=== PATIENT | male | born 1970 | race Caucasian/White ===

== ENCOUNTER 2018-09-01 12:37 | Emergency (ER) | payer OTHER, SELFPAY ==
[2018-09-01 13:00] VITALS: BP 135/89; PULSE 79; RESP 20; TEMP 36.8; O2SAT 97
--- NOTE | 2018-09-01 14:01 | ED_ITS ---
HPI - Skin/Abscess/Foreign Bdy <MARGA Le - Last Filed: 09/01/18 22:15> General Chief complaint: Skin/Abscess/Foreign Body Stated complaint: STATES CYST ON HIS BUTTOCKS Time Seen by Provider: 09/01/18 13:18 Source: patient Mode of arrival: ambulatory Limitations: no limitations History of Present Illness HPI narrative: 48-year-old healthy male this everyday smoker here for complaint of having a abscess to his right lower buttocks. He states that he has some swelling into his right lower buttocks for the past 3 weeks. He denies any drainage from the area. No trauma to the area. He states that he feels like it has gotten larger over the past several days. He denies any fevers or chills. Pain and swelling is limited to that area. No other concerns or complaints. He denies any prior history of having abscesses or MRSA. MD complaint: abscess/boil Related Data Previous Rx's Medication Instructions Recorded clindamycin HCl 300 mg PO QID #28 cap 09/01/18 Allergies Allergy/AdvReac Type Severity Reaction Status Date / Time codeine Allergy Verified 09/01/18 13:14 Review of Systems <MARGA Le - Last Filed: 09/01/18 22:15> Constitutional Denies chills, Denies fever(s), Denies lethargy and Denies weakness Eyes Denies change in vision, Denies eye discharge, Denies irritation and Denies loss of vision ENT Ears, Nose, Mouth, and Throat: Denies change in voice, Denies neck pain and Denies sore throat Cardiovascular Denies chest pain, Denies irregular heart rhythm, Denies lightheadedness, Denies palpitations, Denies dyspnea, Denies dyspnea on exertion and Denies orthopnea Respiratory Denies cough, Denies dyspnea, Denies dyspnea on exertion and Denies wheezing Gastrointestinal Gastrointestinal: Denies abdominal pain, Denies change in bowel habits, Denies diarrhea, Denies nausea and Denies vomiting Genitourinary Denies hematuria, Denies flank pain, Denies urinary incontinence and Denies urinary urgency Musculoskeletal Denies neck pain Integumentary/Breasts Comments: Abscess right lower buttock Neurologic Denies confusion, Denies loss of vision and Denies weakness Psychiatric Denies anxiety, Denies confusion, Denies depression, Denies homicidal ideation and Denies suicidal ideation Endocrine Denies palpitations Allergic/Immunologic Denies wheezing PFSH <MARGA Le - Last Filed: 09/01/18 22:15> Social History Smoking Status: Current every day smoker Social History Smoking Status: Current every day smoker Exam <MARGA Le - Last Filed: 09/01/18 22:15> Initial Vital Signs Initial Vital Signs: Vital Signs Temperature 98.2 F 09/01/18 13:00 Pulse Rate 79 09/01/18 13:00 Respiratory Rate 20 09/01/18 13:00 Blood Pressure 135/89 09/01/18 13:00 Pulse Oximetry 97 09/01/18 13:00 Const General: cooperative and well developed Nutritional Appearance: well nourished Orientation: alert, awake, oriented x3 and not confused HENMT Mouth: oral mucosae normal and moist mucous membranes Eyes Conjunctivae: conjunctivae normal Sclera: sclerae normal Pupils: PERRL EOM: EOM intact bilaterally Resp Effort & Inspection: normal respiratory effort, able to speak in complete sentences, no respiratory distress and no use of accessory muscles Auscultation: clear to auscultation bilaterally, no rales, no rhonchi and no wheezes Cardio Rate: regular rate Rhythm: regular rhythm Heart Sounds: no click, no gallops, no murmurs and no rubs Skin Other: 4 cm by 3 cm area of erythema and swelling with fluctuance and induration to medial inferior right buttocks Neuro General: alert, oriented x3, gait normal and no focal motor deficits Speech: speech normal <Denise Che DO - Last Filed: 09/02/18 07:51> Initial Vital Signs Initial Vital Signs: Vital Signs Temperature 98.2 F 09/01/18 13:00 Pulse Rate 79 09/01/18 13:00 Respiratory Rate 20 09/01/18 13:00 Blood Pressure 135/89 09/01/18 13:00 Pulse Oximetry 97 09/01/18 13:00 Procedures <MARGA Le - Last Filed: 09/01/18 22:15> Abscess I/D Site: other (Buttocks) Side (if applicable): right Local Anesthetic: lidocaine 1% Amount of anesthesia used (mL): 2 Technique: incised with #11 blade and other (Moderate amount of purulence/sanguinous drainage) Irrigation: Yes Packing used?: none Complications: pain Course <MARGA Le - Last Filed: 09/01/18 22:15> Orders Ordered: ED Orders 09/01/18 14:00 Wound Culture and Gram Stain Stat Vital Signs - 8 hr 09/01/18 14:33 Pulse Rate 88 Respiratory Rate 18 Blood Pressure 122/85 Pulse Oximetry 97 <Denise Che DO - Last Filed: 09/02/18 07:51> Orders Ordered: ED Orders 09/01/18 14:00 Wound Culture and Gram Stain Stat Vital Signs - 8 hr 09/01/18 14:33 Pulse Rate 88 Respiratory Rate 18 Blood Pressure 122/85 Pulse Oximetry 97 MDM - Skin/Abscess/Foreign Bdy <MARGA Le - Last Filed: 09/01/18 22:15> MDM Narrative Medical decision making narrative: Abscess to right lower buttocks was incised and drained. Patient tolerated well. No complications. Wound culture is obtained and is pending. He is placed on clindamycin. [id number] ibuprofen as needed for any discomfort. Follow up with primary care provider for re-evaluation. For any worsening symptoms return to the emergency room. Discharge Plan Departure Patient Disposition: Home Clinical Impression: Abscess of skin or subcutaneous tissue Qualifiers: Site of cutaneous abscess: buttock Qualified Code(s): L02.31 - Cutaneous abscess of buttock Discharge Date/Time: 09/01/18 14:31 Interventions: ED Discharge Assessment Last Done: 09/01/18 14:33 Instructions: DI for Skin Abscess Activity Restrictions/Additional Instructions: Abscess to the right buttocks was incised and drained today. You are placed on a antibiotic ,use as directed. Follow up with primary care provider in the next several days for re-evaluation. Use [id number] ibuprofen as needed for any discomfort. For any worsening symptoms return to the emergency room. Prescriptions: New clindamycin HCl 300 mg capsule 300 mg PO QID Qty: 28 RF: 0 Referrals: [facility] [Provider Group] Stand Alone Forms: Work Release Note <Denise Che DO - Last Filed: 09/02/18 07:51> Cosign ED Attending Cosignature Attestation: I was immediately available in the department for consultation. Documentation has been reviewed. I agree with assessment and plan.
[2018-09-01 14:33] VITALS: BP 122/85; PULSE 88; RESP 18; O2SAT 97
== END 2018-09-01 14:31 | disposition home or self-care (01) ==
PROVIDERS: Emergency Provider Nurse Practitioner Family
DX: L02.31 Cutaneous abscess of buttock (principal)
CPT/HCPCS: 10060; 87070; 87077; 87147; 87186; 87205; 99282; 99292

== ENCOUNTER → 2020-12-18 12:06 | Outpatient (CLI) | payer OTHER, SELFPAY ==
--- NOTE | 2020-12-18 12:07 | DI.US.S_ITS ---
PROCEDURE: US SOFT TISSUE HEAD AND NECK INDICATIONS: ENLARGED LYMPH NODES TECHNIQUE: Real-time scanning was performed of the neck region of interest, with image documentation. COMPARISON: None. FINDINGS: Scattered lymph nodes are noted within the neck. Measured lymph nodes are less than 1 cm in short axis. Most appear to retain a fatty hilum. However, a fatty hilum is not identified in several of the subcentimeter lymph nodes. IMPRESSION: 1. No enlarged lymph nodes based on short axis measurements. . 2. The majority appear to retain fatty hilum. Several lymph nodes demonstrate poor visualization of a fatty hilum. While this could be secondary to technique/reactive nature, interval follow-up is recommended, as loss of fatty hilum can also be seen with more aggressive etiologies. Dictated by: Olga Song M.D. on 12/18/2020 at 16:13 Approved by: Olga Song M.D. on 12/18/2020 at 16:15
== END ==
PROVIDERS: PCP Physician Assistant; Referring Provider Physician Assistant; Visit Provider Physician Assistant
DX: R07.0 Pain in throat (principal); R59.1 Generalized enlarged lymph nodes; R13.19 Other dysphagia
CPT/HCPCS: 76536

== ENCOUNTER 2022-06-28 11:27 | Emergency (ER) | payer OTHER, MEDICAID, SELFPAY ==
[2022-06-28 11:41] VITALS: BP 169/77; PULSE 115; RESP 16; TEMP 36.7; O2SAT 99; BMI 29.2
--- NOTE | 2022-06-28 11:53 | ED_ITS ---
HPI - Skin/Abscess/Foreign Bdy General Chief complaint: Skin/Abscess/Foreign Body Stated complaint: Spider bite 1 mo ago, spots on arm Time Seen by Provider: 06/28/22 11:44 Source: patient Mode of arrival: Family Vehicle Limitations: no limitations History of Present Illness HPI narrative: 51-year-old male smoker presents with small spots on his arm that are painless and otherwise asymptomatic, there is no pruritus. About 1 month ago he had been seen at an outside facility for evaluation of a spider bite. He states that he had been in his home playing video games when he looked down in his right lateral leg and saw a spider and attempted to brush it away, soon thereafter he felt a burning, tingling sensation in his leg and subsequent development of some hemorrhagic blisters. He presented 1st by EMS and then was redirected to the emergency department and had been treated with doxycycline for possible infectious etiology. He has been followed closely by his primary care provider and in the aftermath has developed a painless reticular rash in the region of this bite. It has been slowly improving. He is absent of any systemic complaints such as dizziness, weakness or lightheadedness. He is had no fever chills. He denies chest pain, shortness of breath nor nausea, vomiting or diarrhea. He has no abdominal pain or urinary complaints such as dysuria, frequency or urgency. He denies the use of any topicals. He denies the use of any heat pads. He started noticing these very small, almost imperceptible spots on his arm and given the big picture he is concerned and wants to be checked out Related Data Previous Rx's Medication Instructions Recorded clindamycin HCl 300 mg capsule 300 mg PO QID #28 caps 09/01/18 prednisone 10 mg tablet See Rx Instructions .Route 06/28/22 .COMPLEX #30 tabs Allergies Allergy/AdvReac Type Severity Reaction Status Date / Time codeine Allergy Verified 09/01/18 13:14 Review of Systems Review of Systems Narrative: GENERAL: See HPI HEENT: Denies sinus pain, ear pain, sore throat, difficulty swallowing, dizziness. RESPIRATORY: Denies dyspnea, cough, wheezing, hemoptysis, sputum. CARDIOVASCULAR: Denies chest pain, palpitations, orthopnea, edema, GASTROINTESTINAL: Denies nausea, vomiting, abdominal pain, diarrhea, constipation, melena. : Denies dysuria, frequency, incontinence, hematuria, urinary retention. MUSCULOSKELETAL: denies weakness, joint pain, or bony pain SKIN: See HPI NEUROLOGIC: Denies weakness, headache, numbness, change in speech, confusion, seizures, incoordination. PSYCHIATRIC: No concerning psychosocial issues. 12 point review of systems is negative except for those stated above Patient History Social History Smoking Status: Current every day smoker Smoking Status: Current every day smoker tobacco type: cigarettes alcohol intake frequency: 3 or more drinks per day Alcohol type: beer Substance Use Type: marijuana Exam Narrative Exam Narrative: GENERAL: [51] year old patient appears stated age. Well-developed patient, in mild distress. Anxious HEAD: Atraumatic. Normocephalic. EYES: Pupils equal round and reactive. Extraocular motions intact. No scleral icterus. No injection or drainage. ENT: Nose without bleeding, purulent drainage. Throat without erythema, tonsillar hypertrophy or exudate. Airway patent. NECK: Trachea midline. Non tender CARDIOVASCULAR: Regular rate and rhythm without murmurs, gallops, or rubs. RESPIRATORY: Decreased breath sounds bilaterally with a slightly prolonged expiratory phase, no wheezes, rales or rhonchi GASTROINTESTINAL: Abdomen soft, non-tender, nondistended. EXTREMITIES: No edema or joint tenderness. BACK: Nontender without deformity or crepitance. No flank tenderness. NEURO: AOx3. SKIN: Right lateral lower extremity with a painless reticular type rash, this is nonpalpable and not obviously blanchable. There is no sloughing of the skin, bulla, blisters, tenderness, drainage or breaks in the skin. My long few small, almost imperceptible ?spots? on right upper extremity, no pain, erythema Initial Vital Signs Initial Vital Signs: Vital Signs Temperature 98.1 F 06/28/22 11:41 Pulse Rate 115 H 06/28/22 11:41 Respiratory Rate 16 06/28/22 11:41 Blood Pressure 169/77 H 06/28/22 11:41 Pulse Oximetry 99 06/28/22 11:41 Oxygen Delivery Method 06/28/22 11:41 Course Vital Signs Vital signs: Vital Signs - 8 hr 06/28/22 11:41 Temperature 98.1 F Pulse Rate 115 H Respiratory Rate 16 Blood Pressure 169/77 H Pulse Oximetry 99 Oxygen Delivery Method Room Air MDM - Skin/Abscess/Foreign Bdy Lab Data Result diagrams: 06/28/22 12:42 06/28/22 12:42 Labs: Lab Results 06/28/22 06/28/22 Range/Units 12:42 12:42 WBC 11.1 H (4.5-11.0) X10^3/uL RBC 4.81 (4.5-5.9) X10^6/uL Hgb 16.0 (13.5-17.5) g/dL Hct 45.3 (41-53) % MCV 94.2 (80-100) fL MCH 33.3 (26-34) PG MCHC 35.3 (30-36) % RDW 13.5 (11.6-14.8) % Plt Count 250 (150-400) X10^3/uL Neut % (Auto) 71.9 (50-75) % Lymph % (Auto) 14.3 L (25-40) % Park % (Auto) 9.4 (3-14) % Eos % (Auto) 3.3 (2-4) % Baso % (Auto) 1.1 (0-2) % Neut # (Auto) 8000 H (4186-1249) /uL Lymph # (Auto) 1600 (2068-3417) /uL Park # (Auto) 1000 H (0-900) /uL Eos # (Auto) 400 (0-450) /uL Baso # (Auto) 100 (0-100) /uL ESR 7 (0-15) MM/HR Sodium 136 L (137-145) mmol/L Potassium 4.2 (3.4-5.1) mmol/L Chloride 101 (98-107) mmol/L Carbon Dioxide 23 (22-32) mmol/L BUN 4 L (9-20) mg/dL Creatinine 0.65 L (0.66-1.25) mg/dL Estimated GFR > 60 (>60) mL/min BUN/Creatinine Ratio 6.2 (6-22) Glucose 104 H (70-100) mg/dL Calcium 9.2 (8.4-10.2) mg/dL C-Reactive Protein < 0.5 (<1.0) mg/dL MDM Narrative Medical decision making narrative: 51-year-old male smoker with very small, almost imperceptible skin lesions on right upper extremity as well as reported significant improvement and healing of reticular type rash on right lower leg in the aftermath of a spider bite and treatment with doxycycline Multiple etiologies for patient's symptoms considered including, but not limited to: [Drug reaction, allergic reaction, localize vasculitis,vs. erythema ab igne vs. other] Prior Charts reviewed: Would be emergency department chart obtained and reviewed by myself, also a 2nd ED visit from our department a few years Labs reviewed and interpreted by myself: Very minimal elevation in white blood cells, no significant left shift. Electrolytes unremarkable, inflammatory markers within normal limits Patient new complaints on upper extremity are unremarkable. He is a reassuring history and physical exam. He is absence of any systemic complaints. The reticular rash on his right lower extremity is reported to be significantly improved, this is verified by evaluating pictures on patient's phone. Exact etiology of that particular rash is unclear, drug reaction, erythema my ab igne, localized vasculitis all considered. Findings and discharge diagnosis discussed with patient/family followed by verbalization of understanding Return precautions discussed with patient/family whom verbalize understanding of diagnosis and plan Discharge Plan Departure Patient Disposition: Home Clinical Impression: Skin lesion Instructions: DI for Rash Activity Restrictions/Additional Instructions: *You have been diagnosed with [ non-specific rash, possible drug reaction or local vasculitis] *What to do: *Please continue to take your regular medications as directed. [ x] New medication prescriptions sent to your pharmacy: [ [facility]] [ ] New medication written as a paper prescription [ ] No new medications given *Please follow up with your primary care provider in 2-3 days, call for an appointment. Let them know you were seen in the Emergency Department and that we ask that you be seen in follow up. We will electronically transmit a record of today's note if your PCP is in our system *If you do not have a primary care provider please contact the [facility] Resource line at [phone]. They will ask some questions about your medical history and help get you set up with a doctor in the community. *Return to Emergency Department if you should have any new, worsening or concerning symptoms, such as [fever greater than 101 F, shaking chills, worsening pain, persistent vomiting or other bothersome symptoms] Prescriptions: New prednisone 10 mg tablet See Rx Instructions .ROUTE .COMPLEX Qty: 30 0RF Rx Instructions: Day 1,2,3: 40mg PO Daily Day 4,5,6: 30mg PO Daily Day 7,8,9: 20mg PO Daily Day 10,11,12: 10mg PO Daily #30 No Action clindamycin HCl 300 mg capsule 300 mg PO QID Qty: 28 0RF Referrals: Kurtis Perea PA-C [Primary Care Provider] - Stand Alone Forms: Patient Portal/API
[2022-06-28 13:00] LABS: Add Manual Diff / Slide Review NO; Basophils Absolute Auto 100 /uL (0-100); Basophils Percent Auto 1.1 % (0-2); Eosinophils Absolute Auto 400 /uL (0-450); Eosinophils Percent Auto 3.3 % (2-4); Hematocrit 45.3 % (41-53); Lymphocytes Absolute Auto 1600 /uL (1100-4500); Lymphocytes Percent Auto 14.3 % (25-40); Mean Corpuscular HGB Conc 35.3 % (30-36); Mean Corpuscular Hemoglobin 33.3 PG (26-34); Mean Corpuscular Volume 94.2 fL (80-100); Monocytes Absolute Auto 1000 /uL (0-900); Monocytes Percent Auto 9.4 % (3-14); Neutrophils Absolute Auto 8000 /uL (1500-7000); Neutrophils Percent Auto 71.9 % (50-75); Platelet Count 250 X10^3/uL (150-400); Red Blood Cell Count 4.81 X10^6/uL (4.5-5.9); Red Cell Distribution Width 13.5 % (11.6-14.8); White Blood Cell Count 11.1 X10^3/uL (4.5-11.0)
[2022-06-28 13:10] LABS: BUN Creatinine Ratio 6.2 (6-22); Blood Urea Nitrogen 4 mg/dL (9-20); C-Reactive Protein Quant < 0.5 mg/dL (<1.0); Calcium 9.2 mg/dL (8.4-10.2); Carbon Dioxide 23 mmol/L (22-32); Chloride 101 mmol/L (98-107); Estimated Glomerular Filt Rate > 60 mL/min (>60); Glucose 104 mg/dL (70-100); HEMOLYSIS 24 (0-50); Potassium 4.2 mmol/L (3.4-5.1); Sodium 136 mmol/L (137-145)
[2022-06-28 13:41] VITALS: BP 142/79; PULSE 90; O2SAT 97
[2022-06-28 13:43] LABS: Erythrocyte Sedimentation Rate 7 MM/HR (0-15)
== END 2022-06-28 13:44 | disposition home or self-care (01) ==
PROVIDERS: Emergency Provider Emergency Medicine; PCP Student in an Organized Health Care Education/Training Program
DX: R21 Rash and other nonspecific skin eruption (principal); L98.9 Disorder of the skin and subcutaneous tissue, unspecified
CPT/HCPCS: 36415; 80048; 85025; 85651; 86140; 99283

== ENCOUNTER 2023-02-14 14:46 | Emergency (ER) | payer OTHER, MEDICAID, SELFPAY ==
[2023-02-14 14:48] VITALS: BP 142/78; PULSE 94; RESP 16; TEMP 37.1; O2SAT 99; BMI 27.7
--- NOTE | 2023-02-14 15:18 | ED.RECABL ---
HPI - Recheck/Abnormal Lab/Rx General Chief Complaint: Recheck/Abnormal Lab/Rx Stated Complaint: R/ hand stitches still bleeding from T-2 Time Seen by Provider: 02/14/23 14:55 Source: patient Mode of arrival: Ambulatory History of Present Illness HPI narrative: Patient presents for wound check. Received stitches at the base of his R thumb at [facility] less than 24 hours ago. Patient states when he took the bandage off after playing X box today and there was blood. His friend told him that he should go immediately to the emergency department to have his wound checked. Related Data Previous Rx's Medication Instructions Recorded clindamycin HCl 300 mg capsule 300 mg PO QID #28 caps 09/01/18 prednisone 10 mg tablet See Rx Instructions .Route 06/28/22 .COMPLEX #30 tabs Allergies Allergy/AdvReac Type Severity Reaction Status Date / Time codeine Allergy Verified 09/01/18 13:14 Review of Systems Review of Systems Narrative: CONSTITUTIONAL- Denies: fever, chills, fatigue HEENT- Denies: sore throat, nosebleed, vision changes RESPIRATORY- Denies: shortness of breath, cough, wheezing CARDIAC- Denies: chest pain, edema, orthopnea GI- Denies: abdominal pain, nausea, vomiting, constipation, diarrhea - Denies: frequency, dysuria, hematuria, flank pain MSK- Denies: extremity pain, extremity swelling, joint pain, joint swelling SKIN-reports: Laceration, repaired Denies: rash, itching, burn, swelling NEUROLOGICAL- Denies: headache, numbness, weakness, dizziness PSYCHIATRIC- Denies: anxiety, depression, suicidal ideation, homicidal ideation Patient History Social History Smoking Status: Current every day smoker Smoking Status: Current every day smoker tobacco type: cigarettes alcohol intake frequency: 3 or more drinks per day Alcohol type: beer Substance Use Type: marijuana Exam Initial Vital Signs Initial Vital Signs: Vital Signs Temperature 98.7 F 02/14/23 14:48 Pulse Rate 94 H 02/14/23 14:48 Respiratory Rate 16 02/14/23 14:48 Blood Pressure 142/78 H 02/14/23 14:48 Pulse Oximetry 99 02/14/23 14:48 Oxygen Delivery Method Room Air 09/03/23 14:48 Const: Well-nourished, Well-developed, appears stated age Eyes: PERRL, EOMI, conjunctiva normal ENT: Atraumatic, dentition normal, mucous membranes moist Cardiac: regular rate, regular rhythm RESP: unlabored, clear bilaterally, no wheezing GI: Atraumatic, soft, nontender, nondistended, no rebound, no guarding MSK: Atraumatic, full range of motion, pulses equal Skin: Warm, Dry, sutures at base of right thumb clean, dry, intact, no active bleeding, no excessive warmth or erythema Neuro: AO x3, CN II-XII grossly intact, moves all extremities Psych: affect normal, mood normal, not suicidal, not homicidal Course Course Course Narrative: Wound check, appears to be healing well. Patient likely agitated sutures after playing crealyticsox. Wound cleaned, bacitracin applied, wound care instructions discussed at bedside. Orders Ordered: Discontinued Medications Bacitracin (Bacitracin Oint 0.9 Gm Pckt) 1 applic TOP NOW ONE Stop: 02/14/23 15:18 Last Admin: 02/14/23 15:23 Dose: 1 applic Vital Signs Vital signs: Vital Signs - 8 hr 02/14/23 14:48 Temperature 98.7 F Pulse Rate 94 H Respiratory Rate 16 Blood Pressure 142/78 H Pulse Oximetry 99 Oxygen Delivery Method Room Air Discharge Plan Departure Patient Disposition: Home Clinical Impression: Encounter for wound re-check Instructions: Laceration Repair Prescriptions: No Action clindamycin HCl 300 mg capsule 300 mg PO QID Qty: 28 0RF prednisone 10 mg tablet See Rx Instructions .ROUTE .COMPLEX Qty: 30 0RF Rx Instructions: Day 1,2,3: 40mg PO Daily Day 4,5,6: 30mg PO Daily Day 7,8,9: 20mg PO Daily Day 10,11,12: 10mg PO Daily #30 Referrals: Kurtis Perea PA-C [Primary Care Provider] - Stand Alone Forms: Patient Portal/API
[2023-02-14] MEDS: BACITRACIN OINT 0.9 GM PCKT 1 APPLIC TOP (15:23)
== END 2023-02-14 15:27 | disposition home or self-care (01) ==
PROVIDERS: Emergency Provider Emergency Medicine; PCP Student in an Organized Health Care Education/Training Program
DX: Z48.00 Encounter for change or removal of nonsurgical wound dressing (principal)
CPT/HCPCS: 99282

== ENCOUNTER 2024-08-28 10:49 | Inpatient (IN) | payer OTHER, SELFPAY ==
[2024-08-28 11:08] VITALS: BP 124/71; PULSE 112; RESP 14; TEMP 36.2; O2SAT 100; BMI 21.5
--- NOTE | 2024-08-28 11:33 | ED_ITS ---
HPI - Psych General Chief Complaint: Psychiatric Symptoms Stated Complaint: depression Time Seen by Provider: 08/28/24 11:24 Source: patient and family Mode of arrival: Ambulatory History of Present Illness HPI Narrative: 54-year-old male with ongoing alcohol use, last drink yesterday, no shakiness, no seizure activity, decreased eating, family concern for possible depression, no known suicidal ideation, no known homicidal ideation, here per request of family members for further evaluation. Related Data Previous Rx's Medication Instructions Recorded clindamycin HCl 300 mg capsule 300 mg PO QID #28 caps 09/01/18 prednisone 10 mg tablet See Rx Instructions .Route 06/28/22 .COMPLEX #30 tabs Allergies Allergy/AdvReac Type Severity Reaction Status Date / Time codeine Allergy Verified 09/01/18 13:14 Patient History Social History household members: family Smoking Status: Current every day smoker Smoking Status: Current every day smoker tobacco type: cigarettes alcohol intake frequency: 3 or more drinks per day Alcohol type: beer and hard liquor Exam Narrative Exam Narrative: GENERAL: Well-developed patient, in mild distress. HEAD: Atraumatic. Normocephalic. EYES: Pupils equal round and reactive. Extraocular motions intact. No scleral icterus. No injection or drainage. ENT: Nose without bleeding, purulent drainage. Throat without erythema, tonsillar hypertrophy or exudate. Airway patent. NECK: Trachea midline. Non tender CARDIOVASCULAR: Regular rate and rhythm without murmurs, gallops, or rubs. RESPIRATORY: Clear to auscultation. Breath sounds equal bilaterally. No wheezes, rales, or rhonchi. GASTROINTESTINAL: Abdomen soft, non-tender, nondistended. EXTREMITIES: No edema or joint tenderness. BACK: Nontender without deformity or crepitance. No flank tenderness. NEURO: AOx3. Motor functions grossly nonfocal SKIN: No rash or erythema of visible areas Initial Vital Signs Initial Vital Signs: Vital Signs Temperature 97.2 F L 08/28/24 11:08 Pulse Rate 112 H 08/28/24 11:08 Respiratory Rate 14 08/28/24 11:08 Blood Pressure 124/71 08/28/24 11:08 Pulse Oximetry 100 08/28/24 11:08 Oxygen Delivery Method Room Air 08/28/24 11:08 Course Orders Ordered: ED Orders 08/28/24 13:00 Acetaminophen Stat Complete Blood Count AUTO DIFF Stat Comprehensive Metabolic Panel Stat Ethanol (ETOH) Stat Salicylate Stat TSH w/ Reflex to FT4 Stat 08/28/24 14:51 CT abdomen pelvis wo con Stat 08/28/24 16:57 BMP [Basic Metabolic Panel] Stat 08/28/24 17:10 Ictotest Urine Stat Urinalysis and Microscopic Stat Urine Drug Screen, Rapid Stat Al Hydrox/Mg Hydrox/Simethicone (Mag Hydrox/Alum/Simeth 30 Ml Udc) 30 ml PO Q6HR PRN PRN Reason: Dyspepsia Sodium Chloride (Normal Saline 0.9%) 1,000 mls @ 150 mls/hr IV CONT BEVRELY Last Admin: 08/28/24 18:03 Dose: 150 mls/hr Documented By: MICHAEL Naloxone HCl (Naloxone 0.4 Mg/Ml Vial) 0.2 mg IV Q2MIN PRN PRN Reason: Opiate Reversal Ondansetron HCl (Ondansetron 4 Mg/2 Ml Inj) 4 mg IV Q8HR PRN PRN Reason: Nausea And Vomiting Discontinued Medications Sodium Chloride (Normal Saline 0.9%) 1,000 mls @ 1,000 mls/hr IV BOLUS ONE Stop: 08/28/24 15:50 Last Infusion: 08/28/24 16:05 Dose: Infused Documented By: Admin: 08/28/24 15:00 Dose: 1,000 mls/hr Documented By: TRINI Lactated Ringer's (Lactated Ringers) 1,000 mls @ 500 mls/hr IV BOLUS ONE Stop: 08/28/24 17:04 Last Admin: 08/28/24 19:37 Dose: Not Given Documented By: TRINI Vital Signs Vital signs: Vital Signs - 8 hr 08/28/24 17:36 Temperature 97.7 F Pulse Rate 74 Respiratory Rate 15 Blood Pressure 138/96 H Pulse Oximetry 100 Oxygen Delivery Method Room Air MDM - Psych Lab Data Attestation: I reviewed the patient's lab results. Lab results narrative: White blood cell count 9100, hemoglobin 15.3, platelets 323,000. Sodium 136, potassium 4.4, serum CO2 19, serum chloride 104. BUN 75 with creatinine 2.58. GFR 29 noted to be low. Glucose 118. Total bilirubin 1.4, AST slight abnormality, AST and alkaline phosphatase studies normal. Alcohol level negative, acetaminophen level negative, salicylate level negative. Repeat BNP shows mild improvement renal function, BUN 72 with creatinine 2.3 only. 08/28/24 13:00 08/28/24 16:57 Labs: Lab Results 08/28/24 08/28/24 08/28/24 Range/Units 13:00 16:57 17:10 WBC 9.1 (4.5-11.0) X10^3/uL RBC 4.69 (4.5-5.9) X10^6/uL Hgb 15.3 (13.5-17.5) g/dL Hct 43.5 (41-53) % MCV 92.7 (80-100) fL MCH 32.6 (26-34) PG MCHC 35.1 (30-36) % RDW 14.5 (11.6-14.8) % Plt Count 323 (150-400) X10^3/uL Neut % (Auto) Not Reportable Lymph % (Auto) Not Reportable [place] % (Auto) Not Reportable Eos % (Auto) Not Reportable Baso % (Auto) Not Reportable Lymph # (Auto) Not Reportable [place] # (Auto) Not Reportable Baso # (Auto) Not Reportable Total Counted 100 Seg Neutrophils % 77.0 H (38-70) % Lymphocytes % (Manual) 17.0 L (25-45) % Monocytes % (Manual) 5.0 (2-11) % Basophils % (Manual) 1.0 (0-1) % Neutrophils # (Manual) 7007 H (1765-6318) /uL RBC Morphology Normal morphology Sodium 136 L 137 (137-145) mmol/L Potassium 4.4 4.1 (3.4-5.1) mmol/L Chloride 104 107 (98-107) mmol/L Carbon Dioxide 19 L 17 L (22-32) mmol/L BUN 75 H 72 H (9-20) mg/dL Creatinine 2.58 H 2.30 H (0.66-1.25) mg/dL Estimated GFR 29 L 33 L (>60) mL/min BUN/Creatinine Ratio 29.1 H 31.3 H (6-22) Glucose 118 H 110 H (70-100) mg/dL Calcium 9.8 8.9 (8.4-10.2) mg/dL Total Bilirubin 1.4 H (0.2-1.3) mg/dL AST 59 (17-59) IU/L ALT 82 H (<50) IU/L Alkaline Phosphatase 72 (38-126) U/L Total Protein 7.9 (6.3-8.2) g/dL Albumin 4.5 (3.5-5.0) g/dL Globulin 3.4 (1.7-4.1) g/dL Albumin/Globulin Ratio 1.3 (1.0-2.8) TSH 4.67 (0.47-4.68) uIU/mL Urine Color N Urine Appearance Clear Urine pH 5.5 (4.5-8.0) Ur Specific [place] 1.025 (1.000-1.035) Urine Protein Negative (Negative) Urine Glucose (UA) Negative (Negative) g/dL Urine Ketones Trace H (NEGATIVE) Urine Occult Blood Negative (Negative) Urine Nitrate Negative (Negative) Urine Bilirubin 1+ H (NEGATIVE) Ur Bilirubin Confirm Negative (Negative) Urine Urobilinogen 0.2 (0.2) E.U./dL Ur Leukocyte Esterase Negative (NEGATIVE) Urine RBC None seen (0-5/HPF) Urine WBC 0-1/hpf (0-5/HPF) Ur Squamous Epith Cells 0-1 /hpf (0-5/HPF) Ur Transition Epith Cell 1-5/hpf (0-5/HPF) Ur Renal Epithelial Cell 1-5/hpf H (0-1/HPF) Amorphous Sediment 1+ Urine Bacteria None seen (None) Hyaline Casts 5-10/lpf (None) Ur Culture Indicated? Cult not indicated Vol Urine Centrifuged 10ml (spun) Salicylates < 1.0 (<20) mg/dL U Opiates 300ng/mL cut Negative (Negative) Ur Oxycodone Screen Negative (Negative) Urine Methadone Screen Negative (Negative) Acetaminophen < 10 (10-30) ug/mL Ur Barbiturates Screen Negative (Negative) U Tricyclic Antidepress Negative (Negative) Ur Phencyclidine Scrn Negative (Negative) Ur Amphetamines Screen Negative (Negative) U Methamphetamines Scrn Negative (Negative) Ur MDMA Scrn (Ecstasy) Negative (Negative) U Benzodiazepines Scrn Negative (Negative) Urine Cocaine Screen Negative (Negative) U Marijuana (THC) Screen Negative (Negative) Urine Specific [place] (Normal) Ethyl Alcohol < 10 ( - 10) mg/dL Ur Creatinine (Normal) 08/28/24 Range/Units 17:10 WBC (4.5-11.0) X10^3/uL RBC (4.5-5.9) X10^6/uL Hgb (13.5-17.5) g/dL Hct (41-53) % MCV (80-100) fL MCH (26-34) PG MCHC (30-36) % RDW (11.6-14.8) % Plt Count (150-400) X10^3/uL Neut % (Auto) Lymph % (Auto) [place] % (Auto) Eos % (Auto) Baso % (Auto) Lymph # (Auto) [place] # (Auto) Baso # (Auto) Total Counted Seg Neutrophils % (38-70) % Lymphocytes % (Manual) (25-45) % Monocytes % (Manual) (2-11) % Basophils % (Manual) (0-1) % Neutrophils # (Manual) (7620-5980) /uL RBC Morphology Sodium (137-145) mmol/L Potassium (3.4-5.1) mmol/L Chloride (98-107) mmol/L Carbon Dioxide (22-32) mmol/L BUN (9-20) mg/dL Creatinine (0.66-1.25) mg/dL Estimated GFR (>60) mL/min BUN/Creatinine Ratio (6-22) Glucose (70-100) mg/dL Calcium (8.4-10.2) mg/dL Total Bilirubin (0.2-1.3) mg/dL AST (17-59) IU/L ALT (<50) IU/L Alkaline Phosphatase (38-126) U/L Total Protein (6.3-8.2) g/dL Albumin (3.5-5.0) g/dL Globulin (1.7-4.1) g/dL Albumin/Globulin Ratio (1.0-2.8) TSH (0.47-4.68) uIU/mL Urine Color Urine Appearance Urine pH Normal (4.5-8.0) Ur Specific [place] (1.000-1.035) Urine Protein (Negative) Urine Glucose (UA) (Negative) g/dL Urine Ketones (NEGATIVE) Urine Occult Blood (Negative) Urine Nitrate (Negative) Urine Bilirubin (NEGATIVE) Ur Bilirubin Confirm (Negative) Urine Urobilinogen (0.2) E.U./dL Ur Leukocyte Esterase (NEGATIVE) Urine RBC (0-5/HPF) Urine WBC (0-5/HPF) Ur Squamous Epith Cells (0-5/HPF) Ur Transition Epith Cell (0-5/HPF) Ur Renal Epithelial Cell (0-1/HPF) Amorphous Sediment Urine Bacteria (None) Hyaline Casts (None) Ur Culture Indicated? Vol Urine Centrifuged Salicylates (<20) mg/dL U Opiates 300ng/mL cut (Negative) Ur Oxycodone Screen (Negative) Urine Methadone Screen (Negative) Acetaminophen (10-30) ug/mL Ur Barbiturates Screen (Negative) U Tricyclic Antidepress (Negative) Ur Phencyclidine Scrn (Negative) Ur Amphetamines Screen (Negative) U Methamphetamines Scrn (Negative) Ur MDMA Scrn (Ecstasy) (Negative) U Benzodiazepines Scrn (Negative) Urine Cocaine Screen (Negative) U Marijuana (THC) Screen (Negative) Urine Specific [place] Normal (Normal) Ethyl Alcohol ( - 10) mg/dL Ur Creatinine Normal (Normal) Imaging Data CT abdomen and pelvis noncontrast: Radiologist's Impression: [place] [address] CT Scan Report Signed Patient: Chance Gill MR#: [id number] : 1970 Acct:[id number] Age/Sex: 54 / M Date of Service: 08/28/24 Loc: ED Accession Number: [id number] Procedure: CT abdomen pelvis wo con Ordering Provider: Reilly English MD PROCEDURE: CT ABDOMEN PELVIS WO CON INDICATIONS: PERRY, eval for causes TECHNIQUE: Axial sections were acquired from the lung bases to the pubic symphysis. Coronal and sagittal reformats were performed. For radiation dose reduction, the following was used: automated exposure control, adjustment of mA and/or kV according to patient size. COMPARISON: None. FINDINGS: Image quality: Diagnostic. Lower Chest: Marked coronary calcifications for age. URINARY: Right Kidney: No stones or hydronephrosis. Right Ureter: No hydroureter. Left Kidney: No stones or hydronephrosis. Left Ureter: No hydroureter. Bladder: Normal wall thickness. No stones. ABDOMEN: Liver: No contour-deforming solid mass. Gallbladder: Absent. Biliary ducts: No biliary dilation. Pancreas: No ductal dilation. Spleen: Size is within normal limits. Adrenal Glands: No adrenal nodules. Stomach and Bowel: Normal colonic caliber, without significant wall thickening. Normal appendix. Colonic diverticulosis without evidence of diverticulitis. Peritoneum: No abnormal intraperitoneal fluid. No free air. Ventral Wall: No hernia. Abdominal Nodes: No enlarged retroperitoneal or mesenteric lymph nodes. Vessels: Aorta and inferior vena cava are normal in size. PELVIS: Pelvic Organs: Unremarkable. Pelvic Nodes: Unremarkable. Miscellaneous: No inguinal hernias are seen. Bones: Unremarkable. IMPRESSION: No obstructing stones or hydronephrosis. Normal appendix. Colonic diverticulosis without evidence of diverticulitis. Marked coronary artery calcifications for age. Correlate with risk factors and advise counseling. Dictated by: Ravi Moore M.D. on 08/28/2024 at 15:15 Approved by: Ravi Moore M.D. on 08/28/2024 at 15:18 ECG Data Attestation: I personally reviewed and interpreted this ECG as follows: Interpretation: Normal sinus rhythm with rate of a 78, no obvious ST segment elevation or depression changes. UT 152, QRS 90, QTC 469. MDM Narrative Medical decision making narrative: 54-year-old male admits to alcohol use, decreased oral intake, suspected depression, no current SI/HI, reluctantly here with family for evaluation for suspected major depression. Screening labs sent. GFR 29 poor, this apparently is unbeknownst to the patient. IV fluid bolus. We will recheck BUN and creatinine. CT abdomen and pelvis noncontrast study ordered. CT abdomen and pelvis noncontrast, no obstructive process, no acute your renal or ureteral or bladder process. No acute process. See radiology report. IV fluids to be given, repeat BUN creatinine after fluid bolus. Repeat BNP shows mild improvement BUN creatinine, continue IV fluids. Consider admission. Patient agreeable. We will contact hospitalist. Case discussed with hospitalist Dr. Crenshaw who accepts patient for admission to observation. Discharge Plan Departure Patient Disposition: Admitted as Observation Clinical Impression: Acute kidney injury, Depression, Dehydration Admit Date/Time: 08/28/24 18:34 Admit Provider: Liang Winston
--- NOTE | 2024-08-28 12:15 | EKG_ITS ---
[address] [address] [address] [address] Test Date: 2024-08-28 Pat Name: Chance Gill Department: Room: Gender: Male Residential Program Manager: NORIS : 1970 Requested By: Order Number: [id number] Reading MD: Bora Holden MD Measurements Intervals [place] Rate: 78 P: 53 [place]: 152 QRS: 74 QRSD: 90 T: 73 QT: 412 QTc: 469 Interpretive Statements Normal sinus rhythm Electronically Signed On 08-29-2024 6:46:33 PDT by Bora Holden MD
[2024-08-28 13:14] LABS: Hematocrit 43.5 % (41-53); Hemoglobin 15.3 g/dL (13.5-17.5); Mean Corpuscular HGB Conc 35.1 % (30-36); Mean Corpuscular Hemoglobin 32.6 PG (26-34); Mean Corpuscular Volume 92.7 fL (80-100); Platelet Count 323 X10^3/uL (150-400); Red Blood Cell Count 4.69 X10^6/uL (4.5-5.9); Red Cell Distribution Width 14.5 % (11.6-14.8); White Blood Cell Count 9.1 X10^3/uL (4.5-11.0)
[2024-08-28 13:17] LABS: Add Manual Diff / Slide Review YES
[2024-08-28 13:22] LABS: Acetaminophen < 10 ug/mL (10-30); Alanine Aminotransferase 82 IU/L (<50); Albumin 4.5 g/dL (3.5-5.0); Albumin Globulin Ratio 1.3 (1.0-2.8); Alkaline Phosphatase 72 U/L (38-126); Aspartate Aminotransferase 59 IU/L (17-59); BUN Creatinine Ratio 29.1 (6-22); Bilirubin Total 1.4 mg/dL (0.2-1.3); Blood Urea Nitrogen 75 mg/dL (9-20); Calcium 9.8 mg/dL (8.4-10.2); Carbon Dioxide 19 mmol/L (22-32); Chloride 104 mmol/L (98-107); Estimated Glomerular Filt Rate 29 mL/min (>60); Ethanol (ETOH) < 10 mg/dL; Globulin 3.4 g/dL (1.7-4.1); Glucose 118 mg/dL (70-100); HEMOLYSIS < 15 (0-50); Potassium 4.4 mmol/L (3.4-5.1); Salicylate < 1.0 mg/dL (<20); Sodium 136 mmol/L (137-145); Total Protein 7.9 g/dL (6.3-8.2)
[2024-08-28 13:26] LABS: Neutrophils Absolute Manual 7007 /uL (3000-5900); Total Cells Counted 100
[2024-08-28 13:27] LABS: RBC Morphology Normal Morphology
[2024-08-28 13:52] LABS: TSH w/ Reflex to FT4 4.67 uIU/mL (0.47-4.68)
--- NOTE | 2024-08-28 14:51 | DI.CT.S_ITS ---
PROCEDURE: CT ABDOMEN PELVIS WO CON INDICATIONS: PERRY, eval for causes TECHNIQUE: Axial sections were acquired from the lung bases to the pubic symphysis. Coronal and sagittal reformats were performed. For radiation dose reduction, the following was used: automated exposure control, adjustment of mA and/or kV according to patient size. COMPARISON: None. FINDINGS: Image quality: Diagnostic. Lower Chest: Marked coronary calcifications for age. URINARY: Right Kidney: No stones or hydronephrosis. Right Ureter: No hydroureter. Left Kidney: No stones or hydronephrosis. Left Ureter: No hydroureter. Bladder: Normal wall thickness. No stones. ABDOMEN: Liver: No contour-deforming solid mass. Gallbladder: Absent. Biliary ducts: No biliary dilation. Pancreas: No ductal dilation. Spleen: Size is within normal limits. Adrenal Glands: No adrenal nodules. Stomach and Bowel: Normal colonic caliber, without significant wall thickening. Normal appendix. Colonic diverticulosis without evidence of diverticulitis. Peritoneum: No abnormal intraperitoneal fluid. No free air. Ventral Wall: No hernia. Abdominal Nodes: No enlarged retroperitoneal or mesenteric lymph nodes. Vessels: Aorta and inferior vena cava are normal in size. PELVIS: Pelvic Organs: Unremarkable. Pelvic Nodes: Unremarkable. Miscellaneous: No inguinal hernias are seen. Bones: Unremarkable. IMPRESSION: No obstructing stones or hydronephrosis. Normal appendix. Colonic diverticulosis without evidence of diverticulitis. Marked coronary artery calcifications for age. Correlate with risk factors and advise counseling. Dictated by: Ravi Moore M.D. on 08/28/2024 at 15:15 Approved by: Ravi Moore M.D. on 08/28/2024 at 15:18
[2024-08-28] MEDS: SODIUM CHLORIDE 0.9% 1,000 ML 1000 ML IV (15:00)
[2024-08-28 17:17] LABS: BUN Creatinine Ratio 31.3 (6-22); Blood Urea Nitrogen 72 mg/dL (9-20); Calcium 8.9 mg/dL (8.4-10.2); Carbon Dioxide 17 mmol/L (22-32); Chloride 107 mmol/L (98-107); Estimated Glomerular Filt Rate 33 mL/min (>60); Glucose 110 mg/dL (70-100); HEMOLYSIS < 15 (0-50); Potassium 4.1 mmol/L (3.4-5.1); Sodium 137 mmol/L (137-145)
[2024-08-28 17:34] LABS: Appearance Urine UA CLEAR; Bilirubin Urine UA 1+ (NEGATIVE); Glucose Urine UA NEGATIVE (Negative); Ketones Urine UA TRACE (NEGATIVE); Leukocyte Esterase Urine UA NEGATIVE (NEGATIVE); Nitrite Urine UA NEGATIVE (Negative); Occult Blood Urine UA NEGATIVE (Negative); Protein Urine UA NEGATIVE (Negative); Specific Gravity Urine UA 1.025 (1.000-1.035); Urobilinogen Urine UA 0.2 E.U./dL (0.2); pH Urine UA 5.5 (4.5-8.0)
[2024-08-28 17:36] VITALS: BP 138/96; PULSE 74; RESP 15; TEMP 36.5; O2SAT 100
[2024-08-28 17:43] LABS: Bacteria Urine None Seen; Color Urine UA N; Ictotest Urine Negative (Negative); RBC Urine None Seen (0-5/HPF); Urine Volume 10mL (spun); WBC Urine 0-1/HPF (0-5/HPF)
[2024-08-28 17:44] LABS: Amorphous Sediment Urine 1+; Culture Indicated Urine Cult Not Indicated; Hyaline Casts Urine 5-10/LPF; Renal Epithelial Cells Urine 1-5/HPF (0-1/HPF); Squamous Epithelial Cell Urine 0-1 /HPF (0-5/HPF); Transitional Epi Cells Urine 1-5/HPF (0-5/HPF)
[2024-08-28 17:45] LABS: UR Morphine/Opiate cutoff 300 Negative (Negative); Ur Creatinine Normal (Normal); Ur Specific Gravity Normal (Normal); Urine Amphetamines Negative (Negative); Urine Barbiturates Negative (Negative); Urine Benzodiazepines Negative (Negative); Urine Cocaine Negative (Negative); Urine MDMA Negative (Negative); Urine Methadone Negative (Negative); Urine Methamphetamines Negative (Negative); Urine Oxycodone Negative (Negative); Urine Phencyclidine Negative (Negative); Urine Tetrahydrocannabinol Negative (Negative); Urine Tricyclic Antidepressant Negative (Negative); Urine pH Normal (Normal)
[2024-08-28] MEDS: SODIUM CHLORIDE 0.9% 1,000 ML 150 ML IV (18:03)
[2024-08-28 18:57] VITALS: BMI 21.5
--- NOTE | 2024-08-28 19:08 | CM.DANOTE ---
Addendum entered by UTE Sanchez 08/28/24 19:16: ED PUTTY AND PATCH WORKER Addendum: ED PUTTY AND PATCH WORKER deployed PHQ-9 and CARIE-7. Patient scored 14 (PHQ-9) and 9 (CARIE-7), indicating moderately severe depression and moderate anxiety, respectively. PHQ-9 and CARIE-7 placed in pt chart. GM Moses Original Note: DCP Assessment Note: Pt is a 54yo male, resident of [place], is admitted for PERRY and depression. Pt lives in a house with his father. Pt's Primary Care Provider is Dr. Kurtis Perea ([facility]) and insurance is [employer]. Reviewed chart and discussed with multidisciplinary team pt's medical status and initial discharge needs. DCP met w/patient at bedside; introduced self and role. Patient was found in bed, alert and oriented, cooperative with assessment. Pt presents with a flat affect, Pt confirmed living situation and good support in friends. Pt expressed preference in whatever helps me in the long run and states he is open to co-occurring treatment. 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 PUTTY AND PATCH WORKER presented contact information for [facility] in [place], pt stated interest in the program if recommended when medically cleared. Plan: Anticipating medical clearance until referral to inpatient co-occurring treatment vs. outpatient MH/ABBY treatment in [place]. Pt drove his POV to ED. CM team will follow closely for coordination of discharge plans. GM Moses Discharge Planning/Care Management CM Discharge Assessment Start: 08/28/24 19:05 Freq: Status: Active Protocol: Document 08/28/24 19:05 MW (Rec: 08/28/24 19:07 MW Desktop) Discharge Planning Assessment Assigned B[employer] Worker UTE Miller DPOA/Assigned Designee Name Murali Awad Advance Directives? No History Provided By Patient,Friend,Medical Record Has Patient been admitted in last 30 No days? Prior Living Arrangements House Comment [place] Household Members family Comment Lives with father Type of transporation used prior to Drives own vehicle admit Independent with ADL's Yes Is patient alert and oriented? Yes Caregiver for Another No Patient/Family Preference Drug/Alcohol Rehab Comment Co-Occurring Rehab vs. Outpatient ABBY/MH treatment Barriers to Discharge No Discharge Plan Drug Rehabilitation Transportation Arrangement Pt drive POV to and plans to drive home if able. Referrals Initiated None needed If patient plan is home with home health No : Has signed face to face form been completed? Review Status In Process Please Provide Date Initial DC 08/28/24 Assessment Was Performed Next Review Type Continued Stay Review
--- NOTE | 2024-08-28 19:20 | P.HP_ITS ---
History of Present Illness History of Present Illness Date Patient Seen: 08/28/24 Chief complaint: depression Narrative: From the ED admission: 54-year-old male with ongoing alcohol use, last drink yesterday, no shakiness, no seizure activity, decreased eating, family concern for possible depression, no known suicidal ideation, no known homicidal ideation, here per request of family members for further evaluation. 54 y/o alcoholic brought by family with above concerns. On admission he doesn't act depressed by rather disoriented, almost demented. Unable to answer a single question but without active hallucinations or any other sign of withdrawal. [facility] Social History household members: family Smoking Status: Current every day smoker alcohol intake: current Meds Home Medications and Allergies Home Medications Medication Instructions Recorded Confirmed Type bupropion HCl 150 mg tablet,12 hr 150 mg PO QAM 08/28/24 08/28/24 History sustained-release Allergies Allergy/AdvReac Type Severity Reaction Status Date / Time codeine Allergy Verified 09/01/18 13:14 Review of Systems Review of Systems Narrative: Unobtainable, disoriented Exam Vital Signs (past 8 hours): - 08/28/24 17:36 Temperature 97.7 F Pulse Rate 74 Respiratory Rate 15 Blood Pressure 138/96 H Pulse Oximetry 100 Oxygen Delivery Method Room Air Oxygen Delivery Method Room Air Narrative Exam Narrative: General - in no distress, not diaphoretic CVS - not tachycardic RS - not tachypneic GI - w/o ascites Skin - not jaundiced Neuro - not tremulous, w/o focal weakness Psych - disoriented x 3, not agitated Objective Imaging CT scan - abdomen: Radiologist's impression: Marked coronary artery calcifications for age. Labs 08/29/24 05:30 08/28/24 16:57 Labs: Laboratory Results - last 24 hr 08/28/24 08/28/24 08/28/24 13:00 16:57 17:10 WBC 9.1 RBC 4.69 Hgb 15.3 Hct 43.5 MCV 92.7 MCH 32.6 MCHC 35.1 RDW 14.5 Plt Count 323 Neut % (Auto) Not Reportable Lymph % (Auto) Not Reportable [place] % (Auto) Not Reportable Eos % (Auto) Not Reportable Baso % (Auto) Not Reportable Lymph # (Auto) Not Reportable [place] # (Auto) Not Reportable Baso # (Auto) Not Reportable Total Counted 100 Seg Neutrophils % 77.0 H Lymphocytes % (Manual) 17.0 L Monocytes % (Manual) 5.0 Basophils % (Manual) 1.0 Neutrophils # (Manual) 7007 H RBC Morphology Normal morphology Sodium 136 L 137 Potassium 4.4 4.1 Chloride 104 107 Carbon Dioxide 19 L 17 L BUN 75 H 72 H Creatinine 2.58 H 2.30 H Estimated GFR 29 L 33 L BUN/Creatinine Ratio 29.1 H 31.3 H Glucose 118 H 110 H Calcium 9.8 8.9 Total Bilirubin 1.4 H AST 59 ALT 82 H Alkaline Phosphatase 72 Total Protein 7.9 Albumin 4.5 Globulin 3.4 Albumin/Globulin Ratio 1.3 TSH 4.67 Urine Color N Urine Appearance Clear Urine pH 5.5 Ur Specific [place] 1.025 Urine Protein Negative Urine Glucose (UA) Negative Urine Ketones Trace H Urine Occult Blood Negative Urine Nitrate Negative Urine Bilirubin 1+ H Ur Bilirubin Confirm Negative Urine Urobilinogen 0.2 Ur Leukocyte Esterase Negative Urine RBC None seen Urine WBC 0-1/hpf Ur Squamous Epith Cells 0-1 /hpf Ur Transition Epith Cell 1-5/hpf Ur Renal Epithelial Cell 1-5/hpf H Amorphous Sediment 1+ Urine Bacteria None seen Hyaline Casts 5-10/lpf Ur Culture Indicated? Cult not indicated Vol Urine Centrifuged 10ml (spun) Salicylates < 1.0 U Opiates 300ng/mL cut Negative Ur Oxycodone Screen Negative Urine Methadone Screen Negative Acetaminophen < 10 Ur Barbiturates Screen Negative U Tricyclic Antidepress Negative Ur Phencyclidine Scrn Negative Ur Amphetamines Screen Negative U Methamphetamines Scrn Negative Ur MDMA Scrn (Ecstasy) Negative U Benzodiazepines Scrn Negative Urine Cocaine Screen Negative U Marijuana (THC) Screen Negative Urine Specific [place] Ethyl Alcohol < 10 Ur Creatinine 08/28/24 17:10 WBC RBC Hgb Hct MCV MCH MCHC RDW Plt Count Neut % (Auto) Lymph % (Auto) [place] % (Auto) Eos % (Auto) Baso % (Auto) Lymph # (Auto) [place] # (Auto) Baso # (Auto) Total Counted Seg Neutrophils % Lymphocytes % (Manual) Monocytes % (Manual) Basophils % (Manual) Neutrophils # (Manual) RBC Morphology Sodium Potassium Chloride Carbon Dioxide BUN Creatinine Estimated GFR BUN/Creatinine Ratio Glucose Calcium Total Bilirubin AST ALT Alkaline Phosphatase Total Protein Albumin Globulin Albumin/Globulin Ratio TSH Urine Color Urine Appearance Urine pH Normal Ur Specific [place] Urine Protein Urine Glucose (UA) Urine Ketones Urine Occult Blood Urine Nitrate Urine Bilirubin Ur Bilirubin Confirm Urine Urobilinogen Ur Leukocyte Esterase Urine RBC Urine WBC Ur Squamous Epith Cells Ur Transition Epith Cell Ur Renal Epithelial Cell Amorphous Sediment Urine Bacteria Hyaline Casts Ur Culture Indicated? Vol Urine Centrifuged Salicylates U Opiates 300ng/mL cut Ur Oxycodone Screen Urine Methadone Screen Acetaminophen Ur Barbiturates Screen U Tricyclic Antidepress Ur Phencyclidine Scrn Ur Amphetamines Screen U Methamphetamines Scrn Ur MDMA Scrn (Ecstasy) U Benzodiazepines Scrn Urine Cocaine Screen U Marijuana (THC) Screen Urine Specific [place] Normal Ethyl Alcohol Ur Creatinine Normal Assessment & Plan Assessment and plan (1) Alcoholism: Status: Acute (2) Depression: Status: Acute (3) Acute kidney injury: Status: Acute Assessment & Plan narrative: Alcoholism / Depression - last drink 2 days ago - w/o signs of withdrawal - continue Wellbutrin - IV thiamine for possible alcohol-induced psychosis - psychiatric referral / [facility] referral PERRY - IVFs - BMP pending Smoker - nicotine patch DVT prophylaxis - SCDs Time-Based Coding :: [TOTAL MINUTES] spent with patient and on the chart (including review of chart, obtaining history, exam, reviewing outside data, placing orders, documenting exam and treatment plan, and counseling patient) on [DATE].
[2024-08-28 19:58] VITALS: BP 147/67; PULSE 74; RESP 16; TEMP 36.6; O2SAT 98
[2024-08-28 20:57] VITALS: BP 119/82; PULSE 75; RESP 20; TEMP 36.7; O2SAT 100
[2024-08-28] MEDS: NICOTINE 21 MG PATCH TOP (22:29)
[2024-08-29] MEDS: SODIUM CHLORIDE 0.9% 1,000 ML 150 ML IV ×3 (00:39→23:40)
--- NOTE | 2024-08-29 02:49 | PC.NURSE ---
~ 2100: Assumed care of patient from ED, pt self transferred from [facility] to bed. NS @ 150mL/hr infusing. VSWNL. Pt A&Ox2-3, flat affect, but mostly cooperative. Declined to take off shoes or clothing for full skin check; see EMR. CIWA 0. Unreliable narrator, gives differing answers (answers re: amount of smoking per day ranged from half a pack, a whole pack, a pack and a half, and more than a pack), got confused/forgetful while applying nicotine patch despite discussing a few minutes earlier, doesn't know exactly how he got to [facility] (pt arrived via his POV). Educated pt accordion tuner light and calling before getting up to restroom, however pt declines or forgets to do so. Bed alarm on. Pt denies chest pain, cough, N/V, headache, or any other pain. Pt resting comfortably, call light within reach, plan of care continues.
[2024-08-29 05:43] VITALS: BP 131/83; PULSE 56; RESP 18; TEMP 36.7; O2SAT 100
[2024-08-29 06:10] LABS: Add Manual Diff / Slide Review NO; Basophils Absolute Auto 100 /uL (0-100); Basophils Percent Auto 1.6 % (0-2); Eosinophils Absolute Auto 0 /uL (0-450); Eosinophils Percent Auto 0.2 % (2-4); Hematocrit 38.1 % (41-53); Hemoglobin 13.1 g/dL (13.5-17.5); Lymphocytes Absolute Auto 1400 /uL (1100-4500); Lymphocytes Percent Auto 18.1 % (25-40); Mean Corpuscular HGB Conc 34.5 % (30-36); Mean Corpuscular Hemoglobin 32.5 PG (26-34); Mean Corpuscular Volume 94.1 fL (80-100); Monocytes Absolute Auto 900 /uL (0-900); Neutrophils Absolute Auto 5200 /uL (1500-7000); Neutrophils Percent Auto 68.1 % (50-75); Platelet Count 257 X10^3/uL (150-400); Red Blood Cell Count 4.04 X10^6/uL (4.5-5.9); Red Cell Distribution Width 14.7 % (11.6-14.8); White Blood Cell Count 7.6 X10^3/uL (4.5-11.0)
[2024-08-29 06:22] LABS: Alanine Aminotransferase 63 IU/L (<50); Albumin 3.4 g/dL (3.5-5.0); Albumin Globulin Ratio 1.3 (1.0-2.8); Alkaline Phosphatase 55 U/L (38-126); Aspartate Aminotransferase 43 IU/L (17-59); BUN Creatinine Ratio 35.5 (6-22); Bilirubin Total 1.3 mg/dL (0.2-1.3); Blood Urea Nitrogen 65 mg/dL (9-20); Calcium 8.7 mg/dL (8.4-10.2); Carbon Dioxide 20 mmol/L (22-32); Chloride 112 mmol/L (98-107); Estimated Glomerular Filt Rate 44 mL/min (>60); Globulin 2.7 g/dL (1.7-4.1); Glucose 105 mg/dL (70-100); HEMOLYSIS < 15 (0-50); Magnesium 2.5 mg/dL (1.6-2.3); Potassium 4.1 mmol/L (3.4-5.1); Sodium 140 mmol/L (137-145); Total Protein 6.1 g/dL (6.3-8.2)
[2024-08-29 08:00] VITALS: BP 131/92; PULSE 66; RESP 16; TEMP 36.4; O2SAT 100
[2024-08-29] MEDS: NICOTINE 21 MG PATCH TOP (09:08)
[2024-08-29] MEDS: THIAMINE 200 MG in SODIUM CHLORIDE 0.9% 100 ML 408 MG IV (09:44)
[2024-08-29] MEDS: PANTOPRAZOLE DR 20 MG TABLET PO (11:08)
--- NOTE | 2024-08-29 11:42 | DIET.CONS ---
Dietary Consultation Note Admission Date: 08/28/2024 18:34 Assessment: 54 y M admitted for PERRY, alcoholism. Dietitian screened for low MNA. Met with pt and family at bedside. Family reports normal diet is 1 meal per day, but in the past 6 months, has had decreased PO intakes (ex- instead of doing whole hamburger and fries meal, will only do the hamburger without the bun or will skip a day of eating and only eat small portion of 1 meal the next day). Drinks soda and beer. Family notes usual body weight of 190 lb 6 months ago. Nutrition focused physical exam showing: -Moderate muscle mass loss temporalis, deltoid -Moderate subcutaneous fat loss buccal and orbital fat pads Ht: 182.88 cm Wt: 72.121 kg BMI: 21.5 UBW: 86.36 kg in Feb 2024 (-16% weight loss within 6 months, severe) Last BM: 08/28/24 (08/28/24 18:57) MNA: 5 Rajesh Score: 20 Diet: 08/29/24 Breakfast General (Regular) Diet Diet Modifications: Safety Tray needed?: No Food Texture: Level 7 - Regular Liquid Consistency: Level 0 - Thin Nutrition Percent Meal Consumed 15 08/29/24 09:49 Labs: RBC 4.04 X10^6/uL (4.5-5.9) L 08/29/24 05:30 Hgb 13.1 g/dL (13.5-17.5) L 08/29/24 05:30 Hct 38.1 % (41-53) L 08/29/24 05:30 Creatinine 1.83 mg/dL (0.66-1.25) H 08/29/24 05:30 Nutrition Diagnosis: Severe acute Protein Calorie Malnutrition r/t inadequate protein and nutrient-dense intake with excessive EtOH intake as evidenced by 3 or more alcoholic drinks per day, 15% weight loss within 6 months (severe), <60% of estimated protein needs per day for 6 months per diet recall (severe), moderate muscle mass wasting (temples, deltoid) and moderate subcutaneous fat loss (buccal and orbital fat pads) Interventions: -ONS Enlive trial -Encouraged and discussed additional meal options/having breakfast before other drinks EER: 1800 kcals (25 kcals/kg per BMI) 70 g protein (1 g/kg per PCM w/ PERRY) Monitoring/Evaluations: PO intakes Electronically Signed by: Giovanna Haile 08/29/24 11:42 Clinical Dietitian [address] [address]
[2024-08-29 12:00] VITALS: BP 107/69; PULSE 71; RESP 16; TEMP 36.7; O2SAT 99
--- NOTE | 2024-08-29 13:46 | PC.NURSE ---
Patient is alert and oriented x3 but is forgetful. Up with sba to use the bathroom, he has ivf infusing at 150cc/hr and is getting thiamine iv. Patient has a hx of drinking several beers/drinks per day and smoking 1-2 packs a day. He has a nicotine patch on his r.upper arm and is tolerating this well. Was going to give his buproprion this morning but his girlfriend states that he was not acting right on the medication and that he just stopped taking it. Not sure if they are even understanding patients medical conditions and why he is here, hospitalist is in the room speaking with them both now.
--- NOTE | 2024-08-29 15:08 | P.PN_ITS ---
Subjective Subjective Interval history: Chief complaint: Confusion memory deficits severe malnutrition suspected Wernicke-Korsakoff syndrome and stage IV kidney disease as well as liver injury History of present illness: 54-year-old male who has had a number of traumatic life events over the past decade by report has been drinking alcohol only and not eating any food except occasionally over the past 4 months. In the last 3 weeks patient has had increasing memory deficits short-term was brought to the emergency department. On admission he doesn't act depressed by rather disoriented, almost demented. Unable to answer a single question but without active hallucinations or any other sign of withdrawal. Findings in the emergency department significant for BUN 75 creatinine of 2.6 total bilirubin 1.4 ALT of 82 Hospital course: 08/29: Overnight no significant symptoms although patient appears very impulsive and does have significant short-term memory deficits however patient has had no signs of tremor hyperactivity hallucinosis. Patient has very poor memory does not know the year or the president or the month does remember 0 objects in 3 minutes can spell and do arithmetic however Highly suggestive of the or achy Korsakoff syndrome long discussion and will start Seroquel for his severe anxiety and depression. He does not seem to have alcohol withdrawal Review of systems: No headache diplopia blurred vision No difficulty swallowing No chest pain palpitations No shortness of breath No nausea vomiting diarrhea No paresthesia paresis Physical exam: Patient has very avoidant and flat but irritated affect new line HEENT unremarkable new line heart rate rhythm regular no murmurs appreciated Lungs clear Abdomen nondistended Extremities no edema Patient is only oriented to place and person No asterixis Exam Vital Signs (past 8 hours): - 08/29/24 08:00 08/29/24 12:00 Temperature 97.6 F 98.1 F Pulse Rate 66 71 Respiratory Rate 16 16 Blood Pressure 131/92 H 107/69 Pulse Oximetry 100 99 Oxygen Delivery Method Room Air Oxygen Flow Rate 0 Objective Labs 08/29/24 05:30 08/29/24 05:30 Labs: Laboratory Results - last 24 hr 08/28/24 08/28/24 08/28/24 16:57 17:10 17:10 WBC RBC Hgb Hct MCV MCH MCHC RDW Plt Count Neut % (Auto) Lymph % (Auto) [place] % (Auto) Eos % (Auto) Baso % (Auto) Neut # (Auto) Lymph # (Auto) [place] # (Auto) Eos # (Auto) Baso # (Auto) Sodium 137 Potassium 4.1 Chloride 107 Carbon Dioxide 17 L BUN 72 H Creatinine 2.30 H Estimated GFR 33 L BUN/Creatinine Ratio 31.3 H Glucose 110 H Calcium 8.9 Magnesium Total Bilirubin AST ALT Alkaline Phosphatase Total Protein Albumin Globulin Albumin/Globulin Ratio Urine Color N Urine Appearance Clear Urine pH 5.5 Normal Ur Specific [place] 1.025 Urine Protein Negative Urine Glucose (UA) Negative Urine Ketones Trace H Urine Occult Blood Negative Urine Nitrate Negative Urine Bilirubin 1+ H Ur Bilirubin Confirm Negative Urine Urobilinogen 0.2 Ur Leukocyte Esterase Negative Urine RBC None seen Urine WBC 0-1/hpf Ur Squamous Epith Cells 0-1 /hpf Ur Transition Epith Cell 1-5/hpf Ur Renal Epithelial Cell 1-5/hpf H Amorphous Sediment 1+ Urine Bacteria None seen Hyaline Casts 5-10/lpf Ur Culture Indicated? Cult not indicated Vol Urine Centrifuged 10ml (spun) U Opiates 300ng/mL cut Negative Ur Oxycodone Screen Negative Urine Methadone Screen Negative Ur Barbiturates Screen Negative U Tricyclic Antidepress Negative Ur Phencyclidine Scrn Negative Ur Amphetamines Screen Negative U Methamphetamines Scrn Negative Ur MDMA Scrn (Ecstasy) Negative U Benzodiazepines Scrn Negative Urine Cocaine Screen Negative U Marijuana (THC) Screen Negative Urine Specific [place] Normal Ur Creatinine Normal 08/29/24 05:30 WBC 7.6 RBC 4.04 L Hgb 13.1 L Hct 38.1 L MCV 94.1 MCH 32.5 MCHC 34.5 RDW 14.7 Plt Count 257 Neut % (Auto) 68.1 Lymph % (Auto) 18.1 L [place] % (Auto) 12.0 Eos % (Auto) 0.2 L Baso % (Auto) 1.6 Neut # (Auto) 5200 Lymph # (Auto) 1400 [place] # (Auto) 900 Eos # (Auto) 0 Baso # (Auto) 100 Sodium 140 Potassium 4.1 Chloride 112 H Carbon Dioxide 20 L BUN 65 H Creatinine 1.83 H Estimated GFR 44 L BUN/Creatinine Ratio 35.5 H Glucose 105 H Calcium 8.7 Magnesium 2.5 H Total Bilirubin 1.3 AST 43 ALT 63 H Alkaline Phosphatase 55 Total Protein 6.1 L Albumin 3.4 L Globulin 2.7 Albumin/Globulin Ratio 1.3 Urine Color Urine Appearance Urine pH Ur Specific [place] Urine Protein Urine Glucose (UA) Urine Ketones Urine Occult Blood Urine Nitrate Urine Bilirubin Ur Bilirubin Confirm Urine Urobilinogen Ur Leukocyte Esterase Urine RBC Urine WBC Ur Squamous Epith Cells Ur Transition Epith Cell Ur Renal Epithelial Cell Amorphous Sediment Urine Bacteria Hyaline Casts Ur Culture Indicated? Vol Urine Centrifuged U Opiates 300ng/mL cut Ur Oxycodone Screen Urine Methadone Screen Ur Barbiturates Screen U Tricyclic Antidepress Ur Phencyclidine Scrn Ur Amphetamines Screen U Methamphetamines Scrn Ur MDMA Scrn (Ecstasy) U Benzodiazepines Scrn Urine Cocaine Screen U Marijuana (THC) Screen Urine Specific [place] Ur Creatinine PFSH Social History household members: family Smoking Status: Current every day smoker alcohol intake: current Assessment & Plan Assessment & Plan narrative: Wernicke-Korsakoff syndrome highly suspected agree with high-dose thiamine initiated by near east archeology professor and will escalate dose -Very poor immediate short-term and remote memory on mental status -continue IV thiamine but escalate dose for acute treatment Acute kidney injury on chronic kidney disease approaching stage IV -monitor BUN creatinine -consider referral to outpatient Nephrology Mood disturbance -start low-dose Seroquel 25 mg HS DVT prophylaxis mechanical only due to liver disease and risk of falling Full code Time-Based Coding :: 45 minutes spent with patient and on the chart (including review of chart, obtaining history, exam, reviewing outside data, placing orders, documenting exam and treatment plan, and counseling patient) on 08/29/2024. Quality VTE Deep Vein Thrombosis/Pulmonary Embolism Present on Admission: No
[2024-08-29 16:00] VITALS: BP 136/74; PULSE 82; RESP 16; TEMP 36.6; O2SAT 98
[2024-08-29] MEDS: THIAMINE 500 MG in SODIUM CHLORIDE 0.9% 100 ML 420 MG IV (19:34)
[2024-08-29 20:00] VITALS: BP 117/74; PULSE 71; RESP 18; TEMP 36.5; O2SAT 100
[2024-08-29] MEDS: QUETIAPINE 25 MG TABLET PO (20:56)
[2024-08-30] VITALS: BP 115/70; PULSE 59; RESP 18; TEMP 36.2; O2SAT 98
[2024-08-30 04:00] VITALS: BP 131/87; PULSE 66; RESP 18; TEMP 36.1; O2SAT 99
[2024-08-30] MEDS: SODIUM CHLORIDE 0.9% 1,000 ML 150 ML IV ×2 (06:51→13:13)
[2024-08-30 08:00] VITALS: BP 135/88; PULSE 51; RESP 15; TEMP 36.2; O2SAT 99
[2024-08-30 08:40] LABS: Alanine Aminotransferase 43 IU/L (<50); Albumin 2.6 g/dL (3.5-5.0); Albumin Globulin Ratio 1.1 (1.0-2.8); Alkaline Phosphatase 43 U/L (38-126); Aspartate Aminotransferase 34 IU/L (17-59); BUN Creatinine Ratio 28.8 (6-22); Bilirubin Total 1.1 mg/dL (0.2-1.3); Blood Urea Nitrogen 36 mg/dL (9-20); Carbon Dioxide 20 mmol/L (22-32); Chloride 117 mmol/L (98-107); Estimated Glomerular Filt Rate > 60 mL/min (>60); Globulin 2.4 g/dL (1.7-4.1); Glucose 95 mg/dL (70-100); HEMOLYSIS < 15 (0-50); Potassium 3.6 mmol/L (3.4-5.1); Sodium 140 mmol/L (137-145)
[2024-08-30] MEDS: THIAMINE 500 MG in SODIUM CHLORIDE 0.9% 100 ML 420 MG IV ×3 (09:25→20:39)
[2024-08-30] MEDS: NICOTINE 21 MG PATCH TOP (10:20)
[2024-08-30 12:00] VITALS: BP 127/80; PULSE 57; RESP 12; TEMP 36.3; O2SAT 100
--- NOTE | 2024-08-30 13:48 | CM.DPC ---
DCP Cont. Reviewed EMR and team rounds for status updates. Pt remains on IV librium, newly on Seroquel for agitation and behaviors. Likely will need another 2-days before being ready for d/c. Monitoring for final d/c needs and readiness for OP ABBY tx.
[2024-08-30 16:00] VITALS: BP 129/94; PULSE 99; RESP 15; TEMP 36.2; O2SAT 100
--- NOTE | 2024-08-30 18:34 | P.PN_ITS ---
Subjective Subjective Date Patient Seen: 08/30/24 Interval history: Chief complaint: Confusion memory deficits severe malnutrition suspected Wernicke-Korsakoff syndrome and stage IV kidney disease as well as liver injury History of present illness: 54-year-old male who has had a number of traumatic life events over the past decade by report has been drinking alcohol only and not eating any food except occasionally over the past 4 months. In the last 3 weeks patient has had increasing memory deficits short-term was brought to the emergency department. On admission he doesn't act depressed by rather disoriented, almost demented. Unable to answer a single question but without active hallucinations or any other sign of withdrawal. Findings in the emergency department significant for BUN 75 creatinine of 2.6 total bilirubin 1.4 ALT of 82 Hospital course: 08/29: Overnight no significant symptoms although patient appears very impulsive and does have significant short-term memory deficits however patient has had no signs of tremor hyperactivity hallucinosis. Patient has very poor memory does not know the year or the president or the month does remember 0 objects in 3 minutes can spell and do arithmetic however Highly suggestive of the or achy Korsakoff syndrome long discussion and will start Seroquel for his severe anxiety and depression. He does not seem to have alcohol withdrawal 08/30: Overnight patient appeared to have slept well is much more pleasant and in much better mood today much more interactive a bit better memory does now remember the president but does not know the year did not recognize me from yesterday however Review of systems: No headache diplopia blurred vision No difficulty swallowing No chest pain palpitations No shortness of breath No nausea vomiting diarrhea No paresthesia paresis Physical exam: Patient has very avoidant and flat but irritated affect new line HEENT unremarkable new line heart rate rhythm regular no murmurs appreciated Lungs clear Abdomen nondistended Extremities no edema Patient is only oriented to place and person No asterixis Exam Vital Signs (past 8 hours): - 08/30/24 12:00 08/30/24 16:00 Temperature 97.4 F L 97.2 F L Pulse Rate 57 L 99 H Respiratory Rate 12 15 Blood Pressure 127/80 129/94 H Pulse Oximetry 100 100 Oxygen Delivery Method Room Air Oxygen Flow Rate 0 Objective Labs 08/29/24 05:30 08/30/24 08:11 Labs: Laboratory Results - last 24 hr 08/30/24 08:11 Sodium 140 Potassium 3.6 Chloride 117 H Carbon Dioxide 20 L BUN 36 H Creatinine 1.25 Estimated GFR > 60 BUN/Creatinine Ratio 28.8 H Glucose 95 Calcium 8.0 L Total Bilirubin 1.1 AST 34 ALT 43 Alkaline Phosphatase 43 Total Protein 5.0 L Albumin 2.6 L Globulin 2.4 Albumin/Globulin Ratio 1.1 PFSH Social History household members: family Smoking Status: Current every day smoker alcohol intake: current Assessment & Plan Assessment & Plan narrative: Wernicke-Korsakoff syndrome highly suspected agree with high-dose thiamine initiated by funeral director's assistant and will escalate dose -Very poor immediate short-term and remote memory on mental status -continue IV thiamine but escalate dose for acute treatment Acute kidney injury on chronic kidney disease approaching stage IV -monitor BUN creatinine -consider referral to outpatient Nephrology Mood disturbance -start low-dose Seroquel 25 mg HS DVT prophylaxis mechanical only due to liver disease and risk of falling Full code Time-Based Coding :: 45 minutes spent with patient and on the chart (including review of chart, obtaining history, exam, reviewing outside data, placing orders, documenting exam and treatment plan, and counseling patient) Time-Based Coding :: [TOTAL MINUTES] spent with patient and on the chart (including review of chart, obtaining history, exam, reviewing outside data, placing orders, documenting exam and treatment plan, and counseling patient) on [DATE]. Quality VTE Deep Vein Thrombosis/Pulmonary Embolism Present on Admission: No
[2024-08-30] MEDS: QUETIAPINE 25 MG TABLET PO (20:37)
[2024-08-30 21:30] VITALS: BP 125/68; PULSE 82; RESP 18; TEMP 36.8; O2SAT 100
[2024-08-31 00:01] LABS: Folate 3.3 ng/mL (2.76-20.0)
[2024-08-31 00:08] VITALS: BP 125/68; PULSE 82
[2024-08-31] MEDS: cloNIDine 0.1 MG TABLET PO (00:08)
[2024-08-31 01:00] VITALS: BP 142/79; PULSE 67; RESP 18; TEMP 36.8; O2SAT 98
[2024-08-31 05:00] VITALS: BP 125/77; PULSE 63; RESP 18; TEMP 36.3; O2SAT 99
[2024-08-31] MEDS: THIAMINE 500 MG in SODIUM CHLORIDE 0.9% 100 ML 420 MG IV ×2 (09:55→14:42)
[2024-08-31] MEDS: FOLIC ACID 1 MG TABLET PO (09:55)
[2024-08-31] MEDS: NICOTINE 21 MG PATCH TOP (09:55)
[2024-08-31] MEDS: MULTIVITAMIN 1 TABLET 1 TAB PO (09:55)
[2024-08-31] MEDS: THIAMINE 100 MG TABLET PO (09:55)
[2024-08-31 13:00] VITALS: BP 140/83; PULSE 83; RESP 20; TEMP 36.2; O2SAT 100
--- NOTE | 2024-08-31 13:25 | PM.PN.1 ---
Subjective Subjective Date Patient Seen: 08/31/24 Time Patient Seen: 13:25 Interval history: Chief complaint: Confusion memory deficits severe malnutrition suspected Wernicke-Korsakoff syndrome and stage IV kidney disease as well as liver injury History of present illness: 54-year-old male who has had a number of traumatic life events over the past decade by report has been drinking alcohol only and not eating any food except occasionally over the past 4 months. In the last 3 weeks patient has had increasing memory deficits short-term was brought to the emergency department. On admission he doesn't act depressed by rather disoriented, almost demented. Unable to answer a single question but without active hallucinations or any other sign of withdrawal. Findings in the emergency department significant for BUN 75 creatinine of 2.6 total bilirubin 1.4 ALT of 82 Hospital course: 08/29: Overnight no significant symptoms although patient appears very impulsive and does have significant short-term memory deficits however patient has had no signs of tremor hyperactivity hallucinosis. Patient has very poor memory does not know the year or the president or the month does remember 0 objects in 3 minutes can spell and do arithmetic however Highly suggestive of the or achy Korsakoff syndrome long discussion and will start Seroquel for his severe anxiety and depression. He does not seem to have alcohol withdrawal 08/30: Overnight patient appeared to have slept well is much more pleasant and in much better mood today much more interactive a bit better memory does now remember the president but does not know the year did not recognize me from yesterday however 08/31: Patient confused not oriented to place or year does not remember me Review of systems: No headache diplopia blurred vision No difficulty swallowing No chest pain palpitations No shortness of breath No nausea vomiting diarrhea No paresthesia paresis Physical exam: Patient has very disoriented with very poor memory HEENT unremarkable heart rate rhythm regular no murmurs appreciated Lungs clear Abdomen nondistended Extremities no edema Patient is only oriented to place and person No asterixis Objective laboratory and studies at bottom of note: Assessment and plan: Wernicke-Korsakoff syndrome highly suspected agree with high-dose thiamine initiated by case assembler and will escalate dose -Very poor immediate short-term and remote memory on mental status -continue IV thiamine 500 q.8 hours Acute kidney injury on chronic kidney disease approaching stage IV -monitor BUN creatinine -consider referral to outpatient Nephrology Mood disturbance -start low-dose Seroquel 25 mg HS DVT prophylaxis mechanical only due to liver disease and risk of falling Full code Time-Based Coding :: 45 minutes spent with patient and on the chart (including review of chart, obtaining history, exam, reviewing outside data, placing orders, documenting exam and treatment plan, and counseling patient) Exam Vital Signs (past 8 hours): - 08/31/24 13:00 Pulse Rate 83 Respiratory Rate 20 Blood Pressure 140/83 Pulse Oximetry 100 Oxygen Flow Rate 0 Oxygen Delivery Method Room Air Oxygen Flow Rate 0 Objective Labs 08/29/24 05:30 08/30/24 08:11 Labs: Laboratory Results - last 24 hr 08/30/24 22:15 Folate 3.3 PFSH Social History household members: family Smoking Status: Current every day smoker alcohol intake: current Assessment & Plan Time-Based Coding :: [TOTAL MINUTES] spent with patient and on the chart (including review of chart, obtaining history, exam, reviewing outside data, placing orders, documenting exam and treatment plan, and counseling patient) on [DATE]. Quality VTE Deep Vein Thrombosis/Pulmonary Embolism Present on Admission: No
[2024-08-31 14:47] LABS: Alanine Aminotransferase 46 IU/L (<50); Albumin 2.9 g/dL (3.5-5.0); Albumin Globulin Ratio 1.2 (1.0-2.8); Alkaline Phosphatase 50 U/L (38-126); Aspartate Aminotransferase 37 IU/L (17-59); BUN Creatinine Ratio 15.7 (6-22); Bilirubin Total 0.9 mg/dL (0.2-1.3); Blood Urea Nitrogen 16 mg/dL (9-20); Calcium 8.2 mg/dL (8.4-10.2); Carbon Dioxide 23 mmol/L (22-32); Chloride 111 mmol/L (98-107); Estimated Glomerular Filt Rate > 60 mL/min (>60); Globulin 2.4 g/dL (1.7-4.1); Glucose 95 mg/dL (70-100); HEMOLYSIS < 15 (0-50); Potassium 3.5 mmol/L (3.4-5.1); Sodium 139 mmol/L (137-145); Total Protein 5.3 g/dL (6.3-8.2)
[2024-08-31] MEDS: POTASSIUM CHLORIDE 20 MEQ TAB 40 MEQ PO (16:09)
[2024-08-31 17:00] VITALS: BP 125/89; PULSE 80; RESP 16; TEMP 36.5; O2SAT 97
[2024-08-31] MEDS: ACETAMINOPHEN 325 MG TABLET 650 MG PO (18:35)
[2024-08-31 21:00] VITALS: BP 143/95; PULSE 70; RESP 18; TEMP 36.8; O2SAT 99
[2024-08-31] MEDS: QUETIAPINE 25 MG TABLET PO (21:13)
[2024-08-31] MEDS: MAG HYDROX/ALUM/SIMETH 30 ML UDC PO (21:16)
[2024-09-01 03:00] VITALS: BP 161/109; PULSE 77; RESP 18; TEMP 36.9; O2SAT 99
[2024-09-01] MEDS: MULTIVITAMIN 1 TABLET 1 TAB PO (09:23)
[2024-09-01] MEDS: FOLIC ACID 1 MG TABLET PO (09:23)
[2024-09-01] MEDS: NICOTINE 21 MG PATCH TOP (09:25)
--- NOTE | 2024-09-01 10:28 | DIET.PN1 ---
Dietary Progress Note Assessment: Dietitian f/u. Met with pt at bedside. Eating baked chips and drinking regular pepsi. Reports not eating breakfast before tray was taken away, when asked if he would like anything from the nutrition rooms, he was open to turkey sandwich. Provided half of turkey sandwich and informed RN. PO intakes improving - 75-100% recorded. DFM reviewed for meal composition. Did not want ONS. Encouraged PO intakes for recovery. Ht: 182.88 cm Wt: 72.121 kg BMI: 21.5 Last BM: 08/31/24 (08/31/24 10:07) MNA: 5 Rajesh Score: 20 Diet: 08/29/24 Breakfast General (Regular) Diet Diet Modifications: Safety Tray needed?: No Food Texture: Level 7 - Regular Liquid Consistency: Level 0 - Thin Nutrition Percent Meal Consumed 75% 08/31/24 18:00 Percent Meal Consumed 100% 08/31/24 10:07 Labs: RBC 4.04 X10^6/uL (4.5-5.9) L 08/29/24 05:30 Hgb 13.1 g/dL (13.5-17.5) L 08/29/24 05:30 Hct 38.1 % (41-53) L 08/29/24 05:30 Creatinine 1.02 mg/dL (0.66-1.25) 08/31/24 14:14 Electronically Signed by: Giovanna Haile 09/01/24 10:28 Clinical Dietitian [address] [id number]
[2024-09-01] MEDS: THIAMINE 200 MG in SODIUM CHLORIDE 0.9% 100 ML 408 MG IV (10:38)
[2024-09-01 11:00] VITALS: BP 144/80; PULSE 69; RESP 16; TEMP 36.6; O2SAT 94
[2024-09-01] MEDS: MAG HYDROX/ALUM/SIMETH 30 ML UDC PO (11:58)
[2024-09-01 16:00] VITALS: BP 142/77; PULSE 87; RESP 17; O2SAT 98
--- NOTE | 2024-09-01 17:08 | PC.NURSE ---
Pt A/O, Denies any discomfort CIwa @ this time = 0 SL left wrist intact/patent Call light w/in reach, pt calls appropriately for needs. Continue w/plan of care.
[2024-09-01 20:00] VITALS: BP 130/85; PULSE 83; RESP 20; TEMP 36.9; O2SAT 98
[2024-09-01] MEDS: QUETIAPINE 25 MG TABLET PO (21:15)
[2024-09-01] MEDS: ACETAMINOPHEN 325 MG TABLET 650 MG PO (21:17)
[2024-09-01 23:18] VITALS: BP 125/76; PULSE 83; RESP 18; TEMP 37; O2SAT 98
[2024-09-02 09:00] VITALS: BP 156/98; PULSE 71; RESP 16; TEMP 36.8; O2SAT 98
[2024-09-02] MEDS: MULTIVITAMIN 1 TABLET 1 TAB PO (09:20)
[2024-09-02] MEDS: THIAMINE 200 MG in SODIUM CHLORIDE 0.9% 100 ML 408 MG IV (09:20)
[2024-09-02] MEDS: FOLIC ACID 1 MG TABLET PO (09:20)
--- NOTE | 2024-09-02 10:54 | P.PN_ITS ---
Subjective Subjective Date Patient Seen: 09/02/24 Time Patient Seen: 09:10 Interval history: Chief complaint: Confusion memory deficits severe malnutrition suspected Wernicke-Korsakoff syndrome and stage IV kidney disease as well as liver injury History of present illness: 54-year-old male who has had a number of traumatic life events over the past decade by report has been drinking alcohol only and not eating any food except occasionally over the past 4 months. In the last 3 weeks patient has had increasing memory deficits short-term was brought to the emergency department. On admission he doesn't act depressed by rather disoriented, almost demented. Unable to answer a single question but without active hallucinations or any other sign of withdrawal. Findings in the emergency department significant for BUN 75 creatinine of 2.6 total bilirubin 1.4 ALT of 82 Hospital course: 08/29: Overnight no significant symptoms although patient appears very impulsive and does have significant short-term memory deficits however patient has had no signs of tremor hyperactivity hallucinosis. Patient has very poor memory does not know the year or the president or the month does remember 0 objects in 3 minutes can spell and do arithmetic however Highly suggestive of the or achy Korsakoff syndrome long discussion and will start Seroquel for his severe anxiety and depression. He does not seem to have alcohol withdrawal 08/30: Overnight patient appeared to have slept well is much more pleasant and in much better mood today much more interactive a bit better memory does now remember the president but does not know the year did not recognize me from yesterday however 08/31: Patient confused not oriented to place or year does not remember me 09/02: He states he feels better and does not appear confused, but states he is too weak to safely return home to live alone. Exam Vital Signs (past 8 hours): - 09/02/24 09:00 Temperature 98.3 F Pulse Rate 71 Respiratory Rate 16 Blood Pressure 156/98 H Pulse Oximetry 98 Oxygen Flow Rate 0 Oxygen Delivery Method Room Air Oxygen Flow Rate 0 Narrative Exam Narrative: Patient is oriented x 3 and calm HEENT unremarkable heart rate rhythm regular no murmurs appreciated Lungs clear Abdomen nondistended Extremities no edema No focal neurologic deficits, globally weak No asterixis Objective Labs 08/29/24 05:30 08/31/24 14:14 [facility] Social History household members: family Smoking Status: Current every day smoker alcohol intake: current Assessment & Plan Assessment & Plan narrative: Wernicke-Korsakoff syndrome highly suspected agree with high-dose thiamine initiated by gimp buttonhole machine operator and will escalate dose -much improved with IV thiamine -Very poor immediate short-term and remote memory on mental status -continue IV thiamine 500 q.8 hours, switch to oral at discharge Acute kidney injury without chronic kidney disease -normalized without renal dysfunction Mood disturbance -appears stable -stop low-dose Seroquel 25 mg HS and monitor Weakness -consult PT to assess at this point DVT prophylaxis mechanical only due to liver disease and risk of falling Full code Quality VTE Deep Vein Thrombosis/Pulmonary Embolism Present on Admission: No [facility]ated [employer] Document charge(s): No Charge Codes Subsequent inpatient/observation care: 17050
[2024-09-02 13:00] VITALS: RESP 18
--- NOTE | 2024-09-02 16:04 | CM.DPC ---
DCP COnt: Per MD, pt likely could d/c today but still receiving IV meds and pt states he does not feel stable for d/c yet today. MD requested SW meet bedside with pt and his primary contact/support friend Ketty Bermeo to discuss d/c options for ABBY tx and SW met with MD and pt and friend. MD explained pt's current cognitive impairment makes it difficult for pt to provide accurate historical information and pt confirms that Elvie is his primary support and he states he trusts her with any decisions. Pt confirms he lives with his dad who is disabled from the after being enlisted for 20 years but cognitively intact and just needs some assist with chores and groceries. Pt forgetful and reminded of plan of discharge from the hospital tomorrow. Discussed option of Inpt ABBY tx and discussed plan for Elvie to continue staying and pt's home with his dad to help with the dogs and groceries for pt's Dad. Provided list of Inpt ABBY tx facilities as well as outpt ABBY options and planned for the best success for home plan as Elvie already has pt's wallet and keys and no access to beer/alcohol. Pt willing to discuss further with Elvie as unclear if best option is Inpt tx vs intensive outpt. Elvie concerned about pt's cognition and ability to make decisions himself. SW inquired about POA and pt open to reviewing POA pwk and brochure and states he would choose Elvie as 1)POA and his dad as 2)POA. Provided POA pwk and explained that currently no legal ability to make pt go to treatment and remain established and pt would need to be voluntary but strongly encouraged completing POA pwk as pt's cognition might continue being impaired and get worse, especially if alcohol is continued to be consumed. Both pt and Elvie acknowledge understanding and pt currently agreeable to completing POA pwk. Plan: Elvie plans to be bedside in the AM around 1000 to have further discussion bedside to determine what information pt remembers and decisions on Inpt ABBY vs Intensive Outpt ABBY. Elvie willing to provide transport either way. UTE Zhang
--- NOTE | 2024-09-02 16:16 | PC.NURSE ---
Pt A/O, however at times seems impulsive w/ some confusion. Independent in room SL left wrist intact/patent. CiWa = 0 x 2 this shift. Call light w/in reach, pt calls appropriately for needs Continue w/plan of care.
[2024-09-02 17:00] VITALS: RESP 20
[2024-09-02 19:45] VITALS: BP 108/78; PULSE 72; RESP 17; TEMP 36.9; O2SAT 99
[2024-09-02] MEDS: QUETIAPINE 25 MG TABLET PO (19:45)
[2024-09-02 23:33] VITALS: BP 159/91; PULSE 63; RESP 17; TEMP 36.9; O2SAT 99
--- NOTE | 2024-09-03 00:20 | PC.NURSE ---
Patient found smoking in his room, education provided regarding smoking in hospital. Placed cigarettes and senior director of strategy in safe to give back upon discharge. Pt very receptive to teaching and removal of cigarettes. He refused his scheduled patch this morning. Per litzy Crenshaw to place one now.
[2024-09-03] MEDS: NICOTINE 21 MG PATCH TOP (00:32)
[2024-09-03 06:33] VITALS: BP 157/82; PULSE 86; RESP 17; TEMP 36.8; O2SAT 97
[2024-09-03] MEDS: FOLIC ACID 1 MG TABLET PO (09:56)
[2024-09-03] MEDS: MULTIVITAMIN 1 TABLET 1 TAB PO (09:56)
[2024-09-03] MEDS: THIAMINE 100 MG TABLET 200 MG PO (09:56)
[2024-09-03] MEDS: MAG HYDROX/ALUM/SIMETH 30 ML UDC PO (09:58)
--- NOTE | 2024-09-03 10:54 | CM.DPC ---
DCP Discharge home with outpt resources TONY and met bedside with pt and Jace Bermeo and updated that pt remains medically stable to discharge the hospital. Pt confirms he does not remember much of the discussion that happened bedside regarding discharge planning and ABBY options. Pt agreeable with d/c home today and Sig Jess confirms she will provide transport and assist at d/c. SW discussed Inpt vs Intensive Outpt ETOH tx again and pt confirms that he continues to decline Inpt ETOH tx at this time and his preference is Intensive Outpt at [facility] in [place] and Elvie confirms she will assist pt with this and will call tomorrow Wednesday and TONY made online referral to [facility] today as well. Pt willing to have Elvie keep his keys and wallet at this time and no alcohol is in the house to increase his likelihood of success with remaining sober. Pt able to acknowledge the purpose of medical POA and confirms his preferences for POA are 1) Elvie 2) [facility] 3) his dad. Pt in agreement and signed with RN witness Mary Alice and this TONY and Jace Bermeo present bedside as well. Copy made and scanned into chart and original given to patient and Elvie. Pt confirms he is agreeable and interested in establishing with PCP at [facility] as his current PCP Kurtis Perea does not take his insurance and pt does not feel PCP provides adequate care. Pt does not have a preference between male or female PCP and Elvie confirms she will assist with transport and scheduling as well. TONY updated TCM group requesting to see if they have Provider that is contracted with pt's [facility] insurance to establish care. RN and MD updated. Plan: Patient to d/c home today via Jace Bermeo POV and outpt ETOH tx with [facility] in [place] and establishing with PCP at [facility]. UTE Zhang
--- NOTE | 2024-09-03 11:32 | P.DS_ITS ---
History of Present Illness History of Present Illness Date Patient Seen: 09/03/24 Time Patient Seen: 10:15 Chief complaint: depression Narrative: 54 y/o alcoholic brought by family with above concerns. On admission he doesn't act depressed by rather disoriented, almost demented. Unable to answer a single question but without active hallucinations or any other sign of withdrawal. Discharge Providers Provider Date of admission: 08/28/24 18:34 Discharge Date: 09/03/24 Primary care physician: Kurtis Perea PA-C Consults: 08/28/24 11:17 Consult to [facility] - Employee Operations Examiner Stat Comment: Employee Operations Examiner Consult needed for:: Mental illness Comment: depression/alcoholism 08/28/24 11:24 Consult to [facility] - Employee Operations Examiner Stat Comment: Employee Operations Examiner Consult needed for:: Other reason (Comment) Comment: Depression, history of alcohol use Discharge provider: Jamar Schuster MD Summary Hospital Course Discharge Diagnosis: 1. Wernicke-Korsakoff syndrome 2. Acute kidney injury without chronic kidney disease 3. Alcohol use disorder 4. Depression Hospital Course: The patient was admitted and treated with high-dose IV thiamine and demonstrated improvement in disorientation, agitation and confusion over subsequent days. 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 The patient had been drinking continuously since age 15 until admission. Outpatient consultation and neurology consultation is advisable. school services officer worked with the patient and his DPOA-HC friend to arrange outpatient alcohol rehabilitation services per the patient's preference. The patient and [facility] acknowledged understanding, agreement and appreciation of this plan of care. Status at Discharge Cognitive/behavioral status at discharge: at baseline, confused Functional status at discharge: independent ambulation Overall status at discharge: patient is back to baseline Time Spent with Patient Time spent: Greater than 30 minutes Exam Vital Signs (past 8 hours): - 09/03/24 06:33 Temperature 98.3 F Pulse Rate 86 Respiratory Rate 17 Blood Pressure 157/82 H Pulse Oximetry 97 Oxygen Flow Rate 0 Oxygen Delivery Method Room Air Oxygen Flow Rate 0 Narrative Exam Narrative: Patient is oriented x 3 and calm HEENT unremarkable heart rate rhythm regular no murmurs appreciated Lungs clear Abdomen nondistended Extremities no edema No focal neurologic deficits, globally weak No asterixis Objective Imaging CT scan - abdomen: Radiologist's impression: No obstructing stones or hydronephrosis. Normal appendix. Colonic diverticulosis without evidence of diverticulitis. Marked coronary artery calcifications for age. Correlate with risk factors and advise counseling. Labs 08/29/24 05:30 08/31/24 14:14 [facility] Social History household members: family Smoking Status: Current every day smoker alcohol intake: current Discharge Plan Discharge Plan Patient Disposition: Home Provider Discharge Comment: Followup with outpatient primary care provider 1 week; followup for outpatient alcohol rehabilitation services Discharge orders & Medications Prescriptions: New nicotine 21 mg/24 hr Patch 24 Hour 21 mg topical DAILY Qty: 30 0RF folic acid 1 mg Tablet 1 mg PO DAILY Qty: 30 0RF thiamine mononitrate (vit B1) 100 mg Tablet 200 mg PO DAILY Qty: 30 0RF Continued bupropion HCl 150 mg tablet sustained-release 12 hr 150 mg PO QAM Follow up/Referrals: Kurtis Perea PA-C [Primary Care Provider] - Visit Report/Discharge Packet Stand Alone Forms: Patient Portal/API, Stroke Signs & Symptoms Discharge Data Primary Care Provider: Kurtis Perea Quality VTE Deep Vein Thrombosis/Pulmonary Embolism Present on Admission: No MIPS - Admit I confirm the patient?s Advance Care Plan is present, Code status is documented, Surrogate decision maker is in patient?s record [If Yes, STOP here]: Yes MIPS - Meds 'Current medications' to include all prescriptions, [id number] products, herbals, cannabis/cannabidiol products, and vitamin/mineral/dietary (nutritional) supplements. I have utilized all available resources to obtain, update, or review the patient?s current medications. [If Yes, STOP here]: Yes MIPS - DC The patient has a history of heart transplant or Left Ventricular Assist Device (LVAD). If yes, STOP here.: No The patient has current or prior documentation of left ventricular ejection fraction (LVEF) less than or equal to 40%, or moderate or severely depressed left ventricular systolic function.: No A. The patient was prescribed or already taking an Angiotensin-Converting Enzyme (SHANELLE) Inhibitor, or Angiotensin Receptor Sailaja (ARB).: No B. The patient was prescribed or already taking a beta-sailaja. [If Yes to Both A & B, STOP here]: No Patient not prescribed/taking SHANELLE or ARB, no reason given.: No Patient not prescribed/taking beta-sailaja, no reason given.: No PROFEE Charge Codes Discharge inpatient/observation: [id number]
[2024-09-03] MEDS: ONDANSETRON 4 MG/2 ML INJ IV (11:39)
--- NOTE | 2024-09-03 12:16 | PC.NURSE ---
Pt agreeable to discharge. Education provided on follow-up, pt to find new primary care doctor. Education provided on alcohol cessation. Pt stated, I'm not going to lie and say I won't be drinking when I get home. Pt took nicotine patch off prior to discharge. S/s of stroke provided to pt with follow up questions answered. IV discontinued. Personal property obtained from hospital locked safe and given to pt. Pt wheeled to private vehicle with friend and PCT at approximately 1145.
== END 2024-09-03 11:47 | disposition home or self-care (01) | DRG 775 ==
LOC: ED 11:24 → AC 18:58
PROVIDERS: Hospitalist; Internal Medicine; Admitting Provider Internal Medicine; Emergency Provider Emergency Medicine; PCP Student in an Organized Health Care Education/Training Program; Referring Provider Emergency Medicine; Visit Provider Internal Medicine
DX: F10.96 Alcohol use, unspecified with alcohol-induced persisting amnestic disorder (principal); N17.9 Acute kidney failure, unspecified; E43 Unspecified severe protein-calorie malnutrition; F17.200 Nicotine dependence, unspecified, uncomplicated; F32.A Depression, unspecified; E86.0 Dehydration; Y90.0 Blood alcohol level of less than 20 mg/100 ml; Z68.21 Body mass index [BMI] 21.0-21.9, adult
CPT/HCPCS: 36415; 74176; 80048; 80053; 80305; 80320; 80329; 81001; 82746; 83735; 84443; 85007; 85025; 93005; 93010; 96360; 99284; G0480; J2405

== ENCOUNTER → 2024-10-11 14:57 | Outpatient (CLI) | payer OTHER, SELFPAY ==
[2024-10-11 15:42] LABS: Add Manual Diff / Slide Review NO; Basophils Absolute Auto 100 /uL (0-100); Basophils Percent Auto 1.1 % (0-2); Eosinophils Absolute Auto 500 /uL (0-450); Eosinophils Percent Auto 4.7 % (2-4); Hematocrit 34.5 % (41-53); Hemoglobin 11.7 g/dL (13.5-17.5); Lymphocytes Absolute Auto 1800 /uL (1100-4500); Lymphocytes Percent Auto 16.1 % (25-40); Mean Corpuscular HGB Conc 33.9 % (30-36); Mean Corpuscular Volume 94.5 fL (80-100); Monocytes Absolute Auto 1100 /uL (0-900); Monocytes Percent Auto 10.1 % (3-14); Neutrophils Absolute Auto 7700 /uL (1500-7000); Platelet Count 362 X10^3/uL (150-400); Red Blood Cell Count 3.65 X10^6/uL (4.5-5.9); Red Cell Distribution Width 14.7 % (11.6-14.8); White Blood Cell Count 11.3 X10^3/uL (4.5-11.0)
[2024-10-11 15:55] LABS: BUN Creatinine Ratio 15.1 (6-22); Blood Urea Nitrogen 11 mg/dL (9-20); Calcium 9.1 mg/dL (8.4-10.2); Carbon Dioxide 30 mmol/L (22-32); Chloride 108 mmol/L (98-107); Cholesterol 187 mg/dL (140-199); Estimated Glomerular Filt Rate > 60 mL/min (>60); Glucose 91 mg/dL (70-99); HDL Cholesterol 43 mg/dL (40-60); HEMOLYSIS < 15 (0-50); LDL Cholesterol Calculated 126 mg/dL (<100); Potassium 3.8 mmol/L (3.4-5.1); Sodium 142 mmol/L (137-145); Triglycerides 89 mg/dL (35-150)
== END ==
PROVIDERS: PCP Nurse Practitioner Family; Referring Provider Nurse Practitioner Family; Visit Provider Nurse Practitioner Family
DX: F10.96 Alcohol use, unspecified with alcohol-induced persisting amnestic disorder (principal); E78.5 Hyperlipidemia, unspecified
CPT/HCPCS: 36415; 80048; 80061; 85025

== ENCOUNTER → 2024-10-25 14:50 | Outpatient (CLI) | payer OTHER, SELFPAY ==
[2024-10-25 15:53] LABS: Add Manual Diff / Slide Review NO; Basophils Absolute Auto 100 /uL (0-100); Basophils Percent Auto 1.5 % (0-2); Eosinophils Absolute Auto 400 /uL (0-450); Eosinophils Percent Auto 3.9 % (2-4); Hematocrit 37.7 % (41-53); Hemoglobin 13.1 g/dL (13.5-17.5); Lymphocytes Absolute Auto 1900 /uL (1100-4500); Lymphocytes Percent Auto 18.9 % (25-40); Mean Corpuscular HGB Conc 34.7 % (30-36); Mean Corpuscular Hemoglobin 32.6 PG (26-34); Mean Corpuscular Volume 94.1 fL (80-100); Monocytes Absolute Auto 900 /uL (0-900); Neutrophils Absolute Auto 6700 /uL (1500-7000); Neutrophils Percent Auto 66.7 % (50-75); Platelet Count 364 X10^3/uL (150-400); Red Cell Distribution Width 13.9 % (11.6-14.8); White Blood Cell Count 10.1 X10^3/uL (4.5-11.0)
== END ==
PROVIDERS: PCP Nurse Practitioner Family; Referring Provider Nurse Practitioner Family; Visit Provider Nurse Practitioner Family
DX: F10.96 Alcohol use, unspecified with alcohol-induced persisting amnestic disorder (principal); D72.829 Elevated white blood cell count, unspecified
CPT/HCPCS: 36415; 85025